=== PATIENT | male | born 1950 | race Caucasian/White ===

== ENCOUNTER 2019-11-03 16:55 | Inpatient (IN) | payer MEDICARE ==
[~2019-11-03] VITALS: Ht 175.3 cm; Wt 94.2 kg
[2019-11-03] MEDS ORDERED: CLIN300 PO ×2 (17:35→21:59)
[2019-11-03] MEDS ORDERED: RIFA550T2 PO (17:35)
[2019-11-03] MEDS ORDERED: DIBU30TO PR (17:37)
[2019-11-03 18:27] LABS: BASOPHILS ABSOLUTE AUTO 0.09 K/mm3 (0.00-0.23); BASOPHILS PERCENT AUTO 1 % (0-2); EOSINOPHILS ABSOLUTE AUTO 0.36 K/mm3 (0.00-0.68); EOSINOPHILS PERCENT AUTO 2 % (0-6); Hemoglobin 13.6 g/dL (13.5-17.5); IMMATURE GRAN ABSOLUTE AUTO 0.19 K/mm3 (0.00-0.10); IMMATURE GRAN PERCENT AUTO 1 % (0-1); LYMPHOCYTES ABSOLUTE AUTO 1.01 K/mm3 (0.84-5.20); LYMPHOCYTES PERCENT AUTO 5 % (21-46); MONOCYTES ABSOLUTE AUTO 1.35 K/mm3 (0.16-1.47); MONOCYTES PERCENT AUTO 7 % (4-13); Mean Corpuscular HGB 29.8 pg (26.0-34.0); Mean Corpuscular HGB Conc 31.6 g/dL (31.5-36.5); Mean Corpuscular Volume 94 fL (80-100); Mean Platelet Volume 9.8 fL (9.1-12.4); NEUTROPHILS ABSOLUTE AUTO 15.91 K/mm3 (1.96-9.15); NEUTROPHILS PERCENT AUTO 84 % (41-73); Platelet Count 211 K/mm3 (150-400); RDW Coefficient Variation 18.8 % (11.7-14.2); RDW Standard Deviation 64.7 fL (35.1-46.3); Red Blood Cell Count 4.56 M/mm3 (4.30-5.90); White Blood Cell Count 18.91 K/mm3 (4.00-11.30)
[2019-11-03 18:41] LABS: International Normalized Ratio 1.33
[2019-11-03 19:01] LABS: Albumin, Blood 2.6 g/dL (3.4-5.0); Albumin/Globulin Ratio 0.5 (0.8-1.8); Bilirubin, Total 5.8 mg/dL (0.1-1.0); Calcium, Blood 8.3 mg/dL (8.5-10.1); Creatinine, Blood 2.56 mg/dL (0.60-1.20); Globulin, Blood 5.2 g/dL (2.2-4.0); Potassium, Blood 4.4 mmol/L (3.5-5.5); Total Protein, Blood 7.8 g/dL (6.4-8.2)
[2019-11-03] MEDS ORDERED: Mupirocin22 GM TOP (22:00)
[2019-11-03] MEDS ORDERED: KETO15TC TOP (22:02)
--- NOTE | 2019-11-03 23:00 | NUR ---
PT ADMITTED TO ROOM ICU 15 UNDER PCU STATUS. ARRIVES AT 2140 TO ROOM FROM EMERGENCY DEPARTMENT. SLIDE TRANSFERRED TO BED. PT PRESENTS WITH VERY EDEMATOUS LOWER EXTREMITIES THAT ARE WEEPING BI LAT. HAVE ELEVATED LOWER EXTREMITIES. PT HAS RECENTLY BEEN IN HOSPITAL IN [place]. PT'S STATES THAT PT HAD TWO SEPARATE PARACENTESIS DONE WHILE IN [place] FOR A TOTAL OF 7.5 LITERS. PT PENDING HAVING A PARACENTESIS DONE IN AM. PT RECEIVING ANTIBIOTIC THERAPY. WILL REVIEW CHART AND PLAN OF CARE FOR THIS PT.
--- NOTE | 2019-11-04 02:00 | NUR ---
PT HAS NO S/S ADVERSE REACTIONS TO ANTIBIOTIC THERAPY TO NOTE. HAS BEEN ABLE TO REST SOME. PT'S ROOMS IN FOR THE NIGHT. WILL CONTINUE TO MONITOR PT.
[2019-11-04 04:02] LABS: Hematocrit 38.6 % (37.0-53.0); Hemoglobin 12.3 g/dL (13.5-17.5); Mean Corpuscular HGB 30.4 pg (26.0-34.0); Mean Corpuscular HGB Conc 31.9 g/dL (31.5-36.5); Mean Corpuscular Volume 95 fL (80-100); Platelet Count 189 K/mm3 (150-400); RDW Coefficient Variation 18.5 % (11.7-14.2); RDW Standard Deviation 64.5 fL (35.1-46.3); Red Blood Cell Count 4.05 M/mm3 (4.30-5.90); White Blood Cell Count 13.13 K/mm3 (4.00-11.30)
[2019-11-04 04:20] LABS: Albumin, Blood 2.5 g/dL (3.4-5.0); Albumin/Globulin Ratio 0.5 (0.8-1.8); Bilirubin, Total 5.7 mg/dL (0.1-1.0); Bun/Creatinine Ratio 24.6 (12.0-20.0); Creatinine, Blood 2.81 mg/dL (0.60-1.20); Globulin, Blood 4.6 g/dL (2.2-4.0); Potassium, Blood 4.6 mmol/L (3.5-5.5); Total Protein, Blood 7.1 g/dL (6.4-8.2)
--- NOTE | 2019-11-04 06:43 | NUR ---
PT CONTINUES WITH WEEPING EDEMA TO LOWER EXTREMITIES. ABDOMEN EXTENDED WITH ASCITES. PENDING PARACENTESIS THIS DAY. HAS BEEN UP TO BEDSIDE COMMODE ONCE THIS MORNING. VOIDS KARIME URINE, SMALL AMOUNT. HAS SOFT SMALL STOOL. PT'S ROOMS IN FOR THE NIGHT. IS VERY PARTICULAR CONCERNING PT'S CARE. WILL CONTINUE TO MONITOR PT, AND WILL REPORT OFF TO ONCOMING NURSE.
--- NOTE | 2019-11-04 07:30 | NUR ---
CARE ASSUMED REPORT RECEIVED, CARE ASSUMED AT 0700 FROM MARY ONTIVEROS. PT ASLEEP, AROUSES EASILY FOR ASSESSMENT. AT BEDSIDE. VITALS STABLE, SEE FLOWSHEET. SEE ASSESSMENT.
--- NOTE | 2019-11-04 09:54 | NUR ---
PROVIDER COMMUNICATION DR. CORONADO TO BEDSIDE FOR ASSESSMENT. CONTINUE WITH CURRENT PLAN OF CARE.
--- NOTE | 2019-11-04 10:30 | NUR ---
PT'S HISTORY PT'S EXPLAINED THAT PT HAD BEEN IN HOSPITAL IN [place] AND LEFT AGAINST MEDICAL ADVICE. SHE HAS LIST OF MEDICATIONS THAT HE WAS ON WHILE IN HOSPITAL, AND EXPRESSED CONCERN THAT THE DOCTOR BE AWARE OF THESE MEDICATIONS SINCE HE WASN'T DISCHARGED WITH PRESCRIPTIONS. SPOKE WITH DR. CORONADO WHO STATES HE WILL REVIEW THEM ON PAPER CHART WE CAN NOT UPDATE INPATIENT IV MEDICATIONS IN MED RECONCILIATION. COPY OF MEDICATION LIST PLACED ON PAPER CHART.
--- NOTE | 2019-11-04 11:05 | NUR ---
PHYSICAL THERAPY COMPLETE - SEE PT NOTES. PT TO ULTRASOUND FOR PARACENTESIS. PT SWITCHED TO TELEMETRY HEART MONITOR. CONFIRMED WITH TERESA CAMACHOU CIRCULAR SAWYER HELPER.
--- NOTE | 2019-11-04 12:21 | NUR ---
PT BACK TO ICU 15 AFTER PARACENTESIS. REPORTS FEELING MUCH BETTER. VITALS STABLE. AT BEDSIDE.
[2019-11-04 13:03] LABS: Automated BF WBC Count 0.239 K/mm3 (0-999); Body Fluid WBC Count 239 /mm3 (0-999)
[2019-11-04 13:12] LABS: RBC Count, Body Fluid 153 /mm3 (0-0)
[2019-11-04 13:32] LABS: Total Cell Count, Body Fluid 100
[2019-11-04 13:33] LABS: Color, Body Fluid Yellow (None-Yellow)
[2019-11-04 13:34] LABS: Appearance, Body Fluid Clear (Clear)
--- NOTE | 2019-11-04 19:00 | NUR ---
SUMMARY SINCE RETURNING TO ROOM, VITALS STABLE. BP SOFT, WITH MAPS MOSTLY BETWEEN 60-65. PT AFEBRILE. HR STABLE IN 70'S-80'S. 02 SAT 90'S ON ROOM AIR. PARACENTESIS SITE CLEAN, DRY AND INTACT. PT HAS HAD MINIMAL URINE OUTPUT THROUGHOUT SHIFT, WHICH PT AND SAY IS NOT HIS BASELINE. 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 UPDATED DR. CORONADO ON DECREASED URINE OUTPUT, CURRENT BLOOD PRESSURE, WIFES CONCERN FOR MRSA AND WISH FOR PROBIOTICS. NEW ORDER FOR MRSA SWAB OF OPEN WOUND ON RIGHT CALF AND TO START PROBIOTICS. OTHERWISE, PT HAS BEEN ALERT AND ORIENTED, CALLING APPROPRIATELY FOR NEEDS. STANDBY ASSIST TO BEDSIDE COMMODE AND TOLERATES WELL. WOUND CARE COMPLETE TO BILATERAL LOWER EXTREMITIES PER PT'S HOME REGIME. PHOTOS TAKEN AND PLACED IN PAPER CHART. PT HAS HAD GOOD APPETITE.
--- NOTE | 2019-11-04 19:31 | NUR ---
REPORT TO MARY JOHNSON TO ASSUME CARE
--- NOTE | 2019-11-04 19:45 | NUR ---
ASSUMED CARE BEDSIDE REPORT TAKEN FROM ALFONSO HERNANDEZ. PT IS RESTING COMFORTABLY IN BED AT THIS TIME W/ SPOUSE AT BEDSIDE. DENIED NEEDS AT THIS TIME. RESP EVEN UNLABORED ON RA W/ SATS >92%. EXAMINED PT WOUNDS ON BLE W/ DAY RN. WEEPING EDEMA NOTED. WILL REPLACE DRESSINGS AND ABSOBENT PADS NEEDED. CALL LIGHT IS WITHIN REACH. PT SPOUSE AT BEDSIDE.
[2019-11-05 03:33] LABS: BASOPHILS ABSOLUTE AUTO 0.07 K/mm3 (0.00-0.23); BASOPHILS PERCENT AUTO 1 % (0-2); EOSINOPHILS PERCENT AUTO 10 % (0-6); Hematocrit 37.1 % (37.0-53.0); Hemoglobin 12.1 g/dL (13.5-17.5); IMMATURE GRAN ABSOLUTE AUTO 0.08 K/mm3 (0.00-0.10); IMMATURE GRAN PERCENT AUTO 1 % (0-1); LYMPHOCYTES PERCENT AUTO 16 % (21-46); MONOCYTES ABSOLUTE AUTO 0.97 K/mm3 (0.16-1.47); MONOCYTES PERCENT AUTO 13 % (4-13); Mean Corpuscular HGB 30.8 pg (26.0-34.0); Mean Corpuscular HGB Conc 32.6 g/dL (31.5-36.5); Mean Corpuscular Volume 94 fL (80-100); Mean Platelet Volume 10.2 fL (9.1-12.4); NEUTROPHILS ABSOLUTE AUTO 4.58 K/mm3 (1.96-9.15); NEUTROPHILS PERCENT AUTO 60 % (41-73); Platelet Count 169 K/mm3 (150-400); RDW Coefficient Variation 18.5 % (11.7-14.2); RDW Standard Deviation 63.1 fL (35.1-46.3); Red Blood Cell Count 3.93 M/mm3 (4.30-5.90)
[2019-11-05 03:56] LABS: Albumin/Globulin Ratio 0.5 (0.8-1.8); Bilirubin, Total 3.7 mg/dL (0.1-1.0); Bun/Creatinine Ratio 20.8 (12.0-20.0); Calcium, Blood 7.8 mg/dL (8.5-10.1); Creatinine, Blood 3.79 mg/dL (0.60-1.20); Globulin, Blood 4.3 g/dL (2.2-4.0); Potassium, Blood 4.7 mmol/L (3.5-5.5); Total Protein, Blood 6.3 g/dL (6.4-8.2)
--- NOTE | 2019-11-05 06:03 | NUR ---
SHIFT SUMMARY PT SLEEPING IN ROOM COMFORTABLY AT THIS TIME. NO ACUTE CHANGES IN STATUS T/O NIGHT. PT SLEPT WELL. DENIED ANY CP OR SOB. RESP EVEN UNLABORED ON RA W/ SATS >92%. PT WAS SIGNIFICANT REDNESS EDEMA TO BLE, NO DRESSINGS TO LEGS, ABSORBENT PADS PLACED ON BED AND OVER LEGS TO ABSORB WEEPING. LEGS MEDICATED W/ HOME REGIMEN CREAM. MEPILEX PLACE ON OUTER L LEG WOUND AND REAR R LEG WOUND. ASCENCION CHICAS SENT TO LAB DURING SHIFT. PT GOT UP TO BSC ONCE DURING NIGHT, WAS SLIGHTLY UNSTEADY ON FEET, REQUIRED STRONG 1 PERS ASSIST AND 4WW. PT HAD VERY SMALL BM, AND VERY SMALL URINE OUTPUT. VSS. PT REPORTS WEEPING ON LEGS GREATLY REDUCED FROM PREVIOUS DAYS. DENIES OTHER NEEDS AT THIS TIME. CALL LIGHT IS WITHIN REACH. PT SPOUSE AT BEDSIDE. WILL GIVE BEDSIDE REPORT TO ONCOMING RN.
--- NOTE | 2019-11-05 08:00 | NUR ---
INITIAL ASSESMENT PT ALERT AND ORIENT AND CALM AND COOPERATIVE, FOLLOWS ALL COMMANDS AND C/O GENERALIZED PAIN. DEMANDING AND VERY DIRECT ON PT CARE AND NEEDS. VSS, AFEBRILE AND RA WITH SATS WNL AND CLEAR AND DIM BILAT. TOLERATING PO INTAKE WITH GOOD APPETITE AND abd ROUND DISTENDED AND FIRM WITH BT T/O. UO MINIMAL, MD ADVISED. BILAT LE VERY EDEMATOUS, RED AND WARM AND DRAINING YELLOW DISCHARGE
--- NOTE | 2019-11-05 13:15 | NUR ---
PT UPDATE PT REFUSING OCTREATIDE QTT AND ALBUMIN INFUSION, EDUCATION AND MEDICATION DETAILS PRINITED AND PROVIDED TO THE PATIENT. FACE TO FACE MEDICATION ED COMPLETE WITH ALL QUESTIONS AND CONCERNS REGARDING MEDS ADDRESSED. PHARMACIST ADVISED AND MD NOTIFIED
[2019-11-05 15:50] LABS: Source, Urine Clean Catch
[2019-11-05 16:07] LABS: Bilirubin, Urine Neg (Neg); Blood, Urine 1+ (Neg); Glucose Qualitative, Urine Neg (Neg); Ketones, Urine 2+ (Neg); Leukocyte Esterase, Urine 1+ (Neg); Nitrite, Urine Neg (Neg); Protein, Urine 2+ (Neg); Specific Gravity, Urine 1.025 (1.003-1.022); Urobilinogen, Urine NORM (Normal)
[2019-11-05 16:12] LABS: Appearance, Urine Hazy (Clear); Color, Urine Amber (P-Yellow)
[2019-11-05 16:14] LABS: Amorphous Light (0-Heavy); Bacteria Mod /hpf; Mucus Light (0-Heavy); Squamous Epithelial Cells Few /hpf (Few); Transitional Epithelial Cells Few /hpf (0-Rare)
--- NOTE | 2019-11-05 18:03 | NUR ---
PT UPDATE PT REQUESTING MAR TO BE PRINTED AND PROVIDED, UNABLE TO COMPLETE REQUEST. CN NOTIFIED, ADVISED TO CALL MED REC, PT CALLED MED REC, THEY ADVISED TO CALL HS. HS ON UNIT WITH FORM AND COLLABORATING WITH TONY AND CN TO MEET WIFES REQUESTS.
--- NOTE | 2019-11-05 20:15 | NUR ---
UPDATE NURSE PRACTIONER RENAY STROUD NOTIFIED THAT PATIENT AND PATIENT'S WOULD LIKE PATIENT TO BE TAKING ROCEPHIN INSTEAD OF CURRENT ANTIBIOTIC. RENAY STATED SHE DID NOT FEEL COMFORTABLE MAKING CHANGES TO PATIENT'S CURRENT ORDERED ANTIBIOTICS. STATED THE DAY SHIFT 'Gwyn WOULD NEED TO DO THAT. PATIENT AND PATIENT'S INFORMED. PATIENT REFUSED TO HAVE ORDERED ANTIBIOTIC TONIGHT.
--- NOTE | 2019-11-05 23:00 | NUR ---
UPDATE A ONE TIME DOSE OF ALBUMIN WAS ORDERED EARLIER IN THE DAY AND PATIENT REFUSED IT AT THAT TIME. HOWEVER, PATIENT IS NOW REQUESTING IT. NURSE PRACTIONER RENAY NOTIFIED AND IT WAS REORDERED. AFTER OBTAINING MEDICATION PATIENT CHANGED HIS MIND AND REFUSED THIS ALBUMIN WELL.
--- NOTE | 2019-11-06 05:38 | NUR ---
UPDATE DR SANCHEZ ORDERED A RENAL PANEL THIS AM PER PATIENT AND PATIENT'S REQUEST.
[2019-11-06 06:20] LABS: Anion Gap 11 mmol/L (6-16); Blood Urea Nitrogen 87 mg/dL (8-24); Bun/Creatinine Ratio 17.8 (12.0-20.0); CO2, Blood 17 mmol/L (21-32); Calcium, Blood 7.8 mg/dL (8.5-10.1); Chloride, Blood 100 mmol/L (98-108); Creatinine, Blood 4.89 mg/dL (0.60-1.20); Glomerular Filtration Rate 13 (60-); Glucose, Blood 112 mg/dL (70-99); Potassium, Blood 4.7 mmol/L (3.5-5.5); Sodium, Blood 128 mmol/L (136-145)
--- NOTE | 2019-11-06 07:21 | NUR ---
SHIFT SUMMARY PATIENT PLEASENT AND COOPERATIVE THROUGHOUT THE NIGHT LAST NIGHT. LOTS OF EDUCATION PROVIDED RELATED TO ANTIBIOTICS AND MEDICATIONS. INFO PRINTED AND PROVIDED TO PATIENT AND PATIENT'S . RISKS OF REFUSING ANTIBIOTIC PROVIDED TO PATIENT AND PATIENT STILL CHOOSE TO REFUSE. DAY SHIFT RN AWARE OF SODIUM LEVEL THIS AM AND WILL ENSURE THE DR IS AWARE WELL. BEDSIDE REPORT DONE WITH ONCOMING RN.
--- NOTE | 2019-11-06 08:30 | NUR ---
ASSUMED CARE OF PT AT 0715. A&O X 3, AT BEDSIDE. REFUSED HEPARIN SQ, CITING EPISTAXIS AND GI BLEEDING, AND REFUSED ABX; WANTS MEDICATION THAT INFECTIOUS DX DOCTOR IN [place] PRESCRIBED (ROCEPHIN). HAS NEW BED ASSIGNMENT ON MEDICAL FLOOR.
--- NOTE | 2019-11-06 09:45 | NUR ---
PT TRANSFERRED TO MEDICAL FLOOR ROOM 312 VIA HIS BED (D/T NUMEROUS POSSESIONS) BY Lia SHEETS, HAS ALL POSSESIONS AND OWN MEDICATIONS.
--- NOTE | 2019-11-06 18:37 | NUR ---
SHIFT SUMMARY PATIENT IS PLEASANT, ALERT AND ORIENTED. TASKES PATIENT TO THE BATHROOM AT THIS TIME AND WILL ASSESS FOR CHANGES. DR. SALAZAR WAS CONSULTED FOR HIS HEPATORENAL SYNDROME AND HIS KIDNEY FUNCTION. PATIENT'S FAMILY MEMBERS ARE VERY BIG ADVOCATES FOR THE PATIENT. SHE DOES GET A LITTLE BIT PUSHY BUT HAS BEEN PLEASANT WITH ME. SPOKE WITH THE PATIENT AND THE PATIENT ADVOCATE ABOUT CONCERNS THAT THE PATIENT AND FAMILY FELT NEEDED TO BE ADRESSED. SHE STATES THAT THERE WAS A COMMENT MADE ABOUT THE ANTIBIOTICS, AND THE PATIENT NOTES THAT SHE DOES NOT WANT TO IGNORE THE CONTINUITY OF CARE. PATIENT HAS BEEN WITH JOY YESTERDAY AND TODAY. HE WAS SWITCHED TO THE MEDICATION THAT THE PATIENT'S FAMILY MEMBER REQUESTED THIS WAS A MEDICATION THAT THE PATIENT WAS PLACED ON BY THE INFECTIOUS DISEASE DOCTOR FROM [place]. THE PATIENT WAS GIVEN AN INFECTIOUS DISEASE CONSULT TO BE CALLED ON SATURDAY. THE PATIENT IS PLEASANT AND REPLIES SLOWLY. PATIENT'S FAMILY MEMBER HAS BEEN VERY VOCAL FOR THE PATIENT. NO ACUTE CONCERNS AT THIS TIME. ROBERTO STATES SHE WILL FOLLOW UP. PATIENT IS CURRENTLY SEEING DR. SALAZAR FOR DR. STOVALL HE IS COVERING HIS PATIENTS AND HIS NEW CONSULTS. PATIENT IS NOT A DIALYSIS PATIENT.
--- NOTE | 2019-11-06 19:53 | NUR ---
1914 REPORT RECEIVED FROM LORETTA HERNANDEZ; PT RESTING COMFORTABLY IN BED WITH AT SIDE WHOM VERY SUPPORTIVE; DENIES NEED FOR PAIN MEDS.
--- NOTE | 2019-11-07 04:46 | NUR ---
SHIFT SUMMARY: 69 Y/O OBESE MALE RESTED COMFORTABLY ALL SHIFT; PTS BILATERAL LOWER LEGS ARE RED AND WARM TO TOUCH; PTS AT SIDE AND VERY SUPPORTIVE; ALERT AND ORIENTED X 4; C/O BILATERAL LOWER LEG PAIN RATED 7/10 WITH NORCO 5/325MG PO GIVEN WITH RELIEF FELT; ABLE TO TRANSFER AND AMBULATE TO BATHROOM AND BACK X 1 STANDBY ASSIST; DENIES NAUSEA; BED LOW POSITION WITH CALL LIGHT AT SIDE.
[2019-11-07 05:40] LABS: Source, Urine Clean Catch
[2019-11-07 06:01] LABS: BASOPHILS ABSOLUTE AUTO 0.06 K/mm3 (0.00-0.23); BASOPHILS PERCENT AUTO 1 % (0-2); EOSINOPHILS ABSOLUTE AUTO 0.82 K/mm3 (0.00-0.68); EOSINOPHILS PERCENT AUTO 15 % (0-6); Hematocrit 38.6 % (37.0-53.0); Hemoglobin 12.3 g/dL (13.5-17.5); IMMATURE GRAN PERCENT AUTO 2 % (0-1); LYMPHOCYTES ABSOLUTE AUTO 0.97 K/mm3 (0.84-5.20); LYMPHOCYTES PERCENT AUTO 17 % (21-46); MONOCYTES PERCENT AUTO 16 % (4-13); Mean Corpuscular HGB 30.3 pg (26.0-34.0); Mean Corpuscular HGB Conc 31.9 g/dL (31.5-36.5); Mean Corpuscular Volume 95 fL (80-100); Mean Platelet Volume 10.5 fL (9.1-12.4); NEUTROPHILS ABSOLUTE AUTO 2.78 K/mm3 (1.96-9.15); NEUTROPHILS PERCENT AUTO 49 % (41-73); Platelet Count 192 K/mm3 (150-400); RDW Coefficient Variation 18.3 % (11.7-14.2); RDW Standard Deviation 62.3 fL (35.1-46.3); Red Blood Cell Count 4.06 M/mm3 (4.30-5.90); White Blood Cell Count 5.63 K/mm3 (4.00-11.30)
[2019-11-07 06:11] LABS: Bilirubin, Urine Neg (Neg); Blood, Urine 1+ (Neg); Glucose Qualitative, Urine Neg (Neg); Ketones, Urine 1+ (Neg); Leukocyte Esterase, Urine 1+ (Neg); Nitrite, Urine Neg (Neg); Protein, Urine 2+ (Neg); Specific Gravity, Urine 1.025 (1.003-1.022); Urobilinogen, Urine NORM (Normal)
[2019-11-07 06:21] LABS: Albumin, Blood 2.4 g/dL (3.4-5.0); Anion Gap 13 mmol/L (6-16); Blood Urea Nitrogen 97 mg/dL (8-24); Bun/Creatinine Ratio 16.1 (12.0-20.0); CO2, Blood 16 mmol/L (21-32); Chloride, Blood 98 mmol/L (98-108); Creatinine, Blood 6.04 mg/dL (0.60-1.20); Glomerular Filtration Rate 10 (60-); Glucose, Blood 99 mg/dL (70-99); Magnesium, Blood 2.7 mg/dL (1.6-2.4); Phosphorus, Blood 7.1 mg/dL (2.5-4.9); Potassium, Blood 4.6 mmol/L (3.5-5.5); Sodium, Blood 127 mmol/L (136-145)
[2019-11-07 06:46] LABS: Appearance, Urine Hazy (Clear); Color, Urine Amber (P-Yellow)
[2019-11-07 06:47] LABS: Amorphous Mod (0-Heavy); Bacteria Few /hpf; Granular Casts 25-50 /lpf (0); Red Blood Cells, Urine 0-2 /hpf (0-2); Squamous Epithelial Cells Rare /hpf (Few); Transitional Epithelial Cells Few /hpf (0-Rare)
--- NOTE | 2019-11-07 18:29 | NUR ---
SHIFT SUMMARY PATIENT HAS HAS A LONG DAY. HE STATES THAT HE IS REALLY NOT FEELING WELL. HE IS GETTING SLOWER AND AT THIS TIME HE HAS BEEN EVALUATED BY DR. HAMPTON, DR. SALAZAR, AND JOY. PATIENT IS PLEASANT WHEN YOU SPEAK WITH HIM BUT HAS SOME MILD ENCEPHALOPATHY. HE IS ON XIAFIN OR RIFAMPIMIN. DR. HAMPTON DOES NOT WANT TO DO A PARACENTESIS DUE TO THE FACT THAT HE COULD MOST LIKELY DAMAGE THE PATIENT'S KIDNEYS EVEN FURTHER. HE SPOKE WITH THE FAMILY ABOUT POSSIBLE TRANSFER TO [facility], APPARENTLY THIS IS MOST LIKELY NOT AN OPTION ANYMORE. HE IS LOOKING THROUGH SOME MORE LAB TESTS TO UNDERSTAND WHAT IS GOING ON WITH THE PATIENT AND WHY HE IS DECLINING SO FAST. CURRENTLY THE PATIENT IS GOING TO GET AN AFP IN THE MORNING LAB DRAW, AND AN ULTRASOUND OF HIS LIVER TO UNDERSTAND IF THERE IS MORE GOING ON THAT THE FAMILY IS NOT TOLD ABOUT. CURRENTLY THE PATIENT IS PLEASANT, BUT SLOWLY DECLINING MENTALLY. HE CANNOT BE ON LACTULOSE DUE TO HIS LOOSER STOOLS THEY WOULD BE MADE MORE LOOSE. THE PATIENT DOES HAVE ASTERIXIS.
--- NOTE | 2019-11-07 23:07 | NUR ---
CALL TO HOSPITALIST PT BLADDER SCANNED PER ORDERS QSHIFT. BLADDER SCAN SHOWED 479ML IN BLADDER, PT ALSO HAS ACITIES. CALL PLACED, ORDERED STRAIGHT CATHETERISATION. PT REFUSED, ATTEMPTED TO USE THE RESTROOM, VOIDED 50ML. PT REFUSED AGAIN AFTER 1 HOUR. PT AND STATED THAT A NURSE OR OPTICAL LATHE OPERATOR CANT READ BLADDER SCANS AND A MESS ATTENDANT CREW OR RADIOLOGIST SHOULD SCAN THE PT BECUASE HE IS TOO FRAGILE TO STRAIGHT CATH DUE TO HIS SWOLLEN FORESKIN. PT AND POUSE EDUCATED ABOUT WHAT REFUSAL WILL INCLUDE, PT STATED THAT HE DOESNT REFUSE BUT INSTEAD JUST NEEDS MORE FACTS. HOSPITALIST NOTIFIED OF REFUSAL, STATED TO CHART HIS REFUSAL. STATED THAT IF THE PTS SWELLING WENT DOWN THEN SHE WOULD THINK ABOUT A STRIGHT CATH AND THE POUSE WANTED TO TALK TO HOSPITALIST ABOUT PLANS FOR HIS KIDNEYS IN THE AM.
--- NOTE | 2019-11-07 23:30 | NUR ---
BEGINNING SHIFT SUMMARY ASSUMED CARE OF PT AT 1900. PT IS A.O X4, STATES HE HAS NUMBNESS IN HIS LEGS. PT IN ROOM AND IS VERY INVOLVED WITH CARE. HEART SOUNDS REGULAR, LUNG SOUNDS HAVE FINE CRACKLES AT THE BASES, PT STATES SOB WITH ACTIVITY AND BECAUSE HIS ABD IS PUSHING UP INTO HIS LUNGS. ABDOMEN FIRM AND TENDER, SEVERLY DISTENDED, AND HYPERATIVE BOWEL SOUNDS. PT BLADDER SCANNED, SEE PREVIOUS NOTE. PT PEED 50ML SP FAR THIS SHIFT, URINE DARK KARIME COLOR. PT LEGS ARE WEEPING, RED, AND EDEMADOUS, DOES WOUND CARE. PT IS CURRENTLY SLEEPING. CALL LIGHT IN REACH, BED IN LOWEST POSTION, WILL CONTINUE TO MONITOR.
--- NOTE | 2019-11-08 04:52 | NUR ---
END SHIFT SUMMARY PT C/O PAIN DURING THE NIGHT, MEDICATED PER EMAR. PT ONLY PEED 75ML DURING THE WHOLE SHIFT, URINE IS DARK KARIME COLORED. PT STATED THAT PT HAD TWO BOWEL MOVEMENTS, STOOL WAS GREEN AND LOOSE. CALL LIGHT IN REACH, BED IN LOWEST POSTION, WILL CONTINUE TO MONITOR UNTIL DAYSHIFT NURSE ARRIVES.
[2019-11-08 05:57] LABS: Albumin, Blood 2.4 g/dL (3.4-5.0); Albumin/Globulin Ratio 0.5 (0.8-1.8); Bilirubin, Total 3.5 mg/dL (0.1-1.0); Bun/Creatinine Ratio 13.8 (12.0-20.0); Calcium, Blood 7.7 mg/dL (8.5-10.1); Creatinine, Blood 6.82 mg/dL (0.60-1.20); Globulin, Blood 4.5 g/dL (2.2-4.0); Phosphorus, Blood 7.9 mg/dL (2.5-4.9); Potassium, Blood 5.6 mmol/L (3.5-5.5); Total Protein, Blood 6.9 g/dL (6.4-8.2)
[2019-11-08 06:02] LABS: BASOPHILS ABSOLUTE AUTO 0.06 K/mm3 (0.00-0.23); BASOPHILS PERCENT AUTO 1 % (0-2); EOSINOPHILS ABSOLUTE AUTO 0.66 K/mm3 (0.00-0.68); EOSINOPHILS PERCENT AUTO 12 % (0-6); Hematocrit 36.9 % (37.0-53.0); Hemoglobin 12.2 g/dL (13.5-17.5); IMMATURE GRAN ABSOLUTE AUTO 0.09 K/mm3 (0.00-0.10); IMMATURE GRAN PERCENT AUTO 2 % (0-1); LYMPHOCYTES ABSOLUTE AUTO 0.81 K/mm3 (0.84-5.20); LYMPHOCYTES PERCENT AUTO 15 % (21-46); MONOCYTES ABSOLUTE AUTO 0.89 K/mm3 (0.16-1.47); MONOCYTES PERCENT AUTO 16 % (4-13); Mean Corpuscular HGB 30.7 pg (26.0-34.0); Mean Corpuscular HGB Conc 33.1 g/dL (31.5-36.5); Mean Corpuscular Volume 93 fL (80-100); Mean Platelet Volume 10.3 fL (9.1-12.4); NEUTROPHILS PERCENT AUTO 54 % (41-73); Platelet Count 186 K/mm3 (150-400); RDW Coefficient Variation 17.9 % (11.7-14.2); RDW Standard Deviation 59.5 fL (35.1-46.3); Red Blood Cell Count 3.98 M/mm3 (4.30-5.90); White Blood Cell Count 5.51 K/mm3 (4.00-11.30)
[2019-11-08 06:17] LABS: International Normalized Ratio 1.59; Prothrombin Time Results 16.6 Sec (9.7-11.5)
--- NOTE | 2019-11-08 08:45 | NUR ---
PT CAME TO THIS NURSE TO REPORT THAT HER IS VERY TIRED FROM NOT SLEEPING LAST NIGHT. SHE STATED THAT THEY WERE NOT GOING TO DO THE BLADDER SCAN NOW OR TAKE ANY MEDICATIONS UNTIL HE GOT SOME REST. THIS NURSE EXPLAINED THAT THESE TX WERE ORDERED BY THE DOCTOR AND THE IMPORTANCE OF THEM. SHE STATED THAT IT COULD ALL WAIT UNTIL LATER. THIS NURSE NOTIFIED CHARGE NURSE AND DOCTOR OF REFUSALS AND WILL ATTEMPT AGAIN LATER THIS MORNING.
[2019-11-08 12:31] LABS: Bun/Creatinine Ratio 14.3 (12.0-20.0); Calcium, Blood 7.9 mg/dL (8.5-10.1); Creatinine, Blood 6.9 mg/dL (0.60-1.20); Potassium, Blood 5.1 mmol/L (3.5-5.5)
--- NOTE | 2019-11-08 13:48 | NUR ---
DR GATES CONSULT DR GATES NOTIFIED OF CONSULT AT THIS TIME. PT ON THE WAY FROM MEDICAL FLOOR.
--- NOTE | 2019-11-08 13:49 | NUR ---
REPORT REPORT RECEIVED FROM MARY MCKAY ON MEDICAL FLOOR. PT TO TRANSFER TO ICU 14.
--- NOTE | 2019-11-08 15:05 | NUR ---
TRANSFER NOTE PT ARRIVED TO ICU 14 FROM MEDICAL FLOOR AT 1450. PT ALERT AND ORIENTED, PLEASANT AND COOPERATIVE WITH CARE. PT IN WAITING AREA. PT TRANSFERRED TO ICU BED AND REPOSITIONED FOR COMFORT. BLE ELEVATED ON PILLOWS. PT CONNECTED TO WAITER/WAITRESS TOURIST CLASS, SHOWING NSR. VSS, SEE FLOWSHEET. PT REPORTS PAIN "ALL OVER" A 6/10, STATES "IT'S MORE LIKE A NUMBNESS". LS CLEAR T/O, DIMINISHED IN BASES. BREATHING E/U ON RA. PT REPORTS SOB WITH TALKING. PT DENIES ANY CHEST PAIN/PRESSURE. ABD MODERATELY DISTENDED, FIRM AND TENDER TO PALPATION. BT X4, HYPOACTIVE. PT DENIES ANY NAUSEA. +4 PITTING EDEMA TO BLE ROM FEET TO UPPER THIGH. EDEMA EXTENDS TO SCROTUM AND ABD. +3 PITTING EDEMA TO ABD. BLE WEEPING, CHUCKS PADS UNDER LEGS. LEFT LEG WRAPPED IN GAUZE, PER REPORT PT'S REFUSES ANY STAFF TO CHANGE DRESSING. PEDAL PULSES STRONG, RADIAL PULSES STRONG. 20G PIV TO LEFT WRIST, FLUSHES EASILY. SODIUM BICARB RUNNING AT 75ML/HR PER ORDERS. PT ROBERTSON, REQUIRES ASSISTANCE WITH REPOSITIONING. CALL LIGHT IN REACH. BED IN LOWEST POSITION, SIDE RAILS RAISED. BED ALARM ON. WILL CONT TO MONITOR PT.
--- NOTE | 2019-11-08 15:47 | NUR ---
PALLIATIVE CARE PALLIATIVE CARE RN, LUCIANA, AT BEDSIDE SPEAKING WITH AND PT.
--- NOTE | 2019-11-08 16:00 | NUR ---
UPDATE ON HEMODIALYSIS DR GATES SPOKE WITH PT, PT'S PRESENT, REGARDING PLACEMENT OF HEMODIALYSIS CATHETER. PT AND REPORT NOT BEING INFORMED OF THE CONSULT FOR POSSIBLE DIALYSIS. DR GATES CALLED DR SALAZAR TO COME AND DISCUSS THIS WITH THE PT AND HIS . DR SALAZAR TO BEDSIDE TO DISCUSS THE ROLE OF HEMODIALYSIS IN PT'S CARE WELL RISKS AND BENEFITS. PT'S PREOCCUPIED WITH THE PLACEMENT SITE OF THE HEMODIALYSIS CATHETER, REQUESTING IT TO BE IN THE GROIN. DR SALAZAR EXPLAINED THAT DR GATES WOULD BE THE ONE TO COVER THE PLACEMENT OPTIONS. PT AND AGREE TO DIALYSIS, BUT WANT TO DISCUSS THE POSSIBLE PLACEMENT SITES OF THE HEMODIALYSIS CATHETER. DR SALAZAR UPDATED DR GATES. DR GATES TO BEDSIDE TO OBTAIN CONSENT AFTER THOROUGHLY EXPLAINING THE PROCEDURE, RISKS, AND BENEFITS OF BOTH GROIN AND IJ PLACEMENT. PT'S CONTINUED TO EXPRESS CONCERN ABOUT PT'S ABILITY TO "BE AWAKE" FOR THE PROCEDURE "WHEN HE HASN'T GOTTEN ANY SLEEP". DR GATES REASSURED THAT THIS PROCEDURE IS DONE OFTEN ON SEDATED PT'S THEREFORE THERE IS NO NEED FOR PT TO BE AWAKE. PT AND HIS WFE ASKING TO "TALK ABOUT IT FOR A BIT". AWAITING PT AND HIS 'S DECISION AT THIS TIME.
--- NOTE | 2019-11-08 16:21 | NUR ---
Pt resting in bed upon arival. He reports manageable discomfort in his abdomen due to pressure. Listened as Pt's reports plan to move to [facility] closer to family, then will meet with specialists in [place]. Discussed prognosis given from current hospitalist, Dr Conn, specialists from [facility] and hospital from [place]. Pt's reports unwillingness to accept prognosis an states she does not respect or trust [facility]. She states specialist will still perform transplant in Pt's current condition in [place]. She also states she does not accept Pt having liver cancer due to no imaging or biopsy that confirms liver cancer. At this point in the visit Dr Quigley enters to discuss placing perma cath for dialysis. Dr Quigley educates on risk factors and the importance of understanding that dialysis will help the kidney's but will not help the liver which is the cause of the kidney failure. Pt and report they would like time to discuss before making a decision. This RN ended visit as well to allow for Pt and to discuss among themselves. Spoke with bedside RN Adore and discussed case. Palliative Care will remain available.
--- NOTE | 2019-11-08 17:58 | NUR ---
HEMODIALYSIS DECISION CONT PT AND TOLD DR GATES THEY WOULD LIKE 2 HOURS FOR PT TO REST BEFORE MAKING A DECISION. THIS WAS DETERMINED AT 1700. PT RESTING WITH LIGHTS OFF IN RM, WARM BLANKET PROVIDED, AND REPOSITIONED TO COMFORT. PLAN TO CHECK BACK WITH PT ON DECISION AT 1900.
--- NOTE | 2019-11-08 18:26 | NUR ---
SHIFT SUMMARY PT RESTING IN BED, LIGHTS OFF IN RM, GLASS DOOR CLOSED, TV ON WITH [employer] PLAYING. CALL LIGHT IN REACH AND AT BEDSIDE. RHYTHM SHOWING NS ON MONITOR. VSS, SEE FLOWSHEET. NO ACUTE CHANGES. AWAITING PT AND HIS 'S DECISION ON WHETHER TO HAVE HEMODIALYSIS CATHETER PLACED TONIGHT. PLAN TO CHECK IN AT 1900. PT'S VERY NEEDY AND PUSHY WITH STAFF. PT DEFERS DECISIONS AND THINKING TO HIS WHOM HE PUTS ON A PEDESTAL. PT REPORTED THAT HIS "HAS SAVED 4 OF MY FAMILY MEMBERS AND HAS EVEN SAVED ME". 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 BED IN LOWEST POSITION, BED ALARM ON. WILL CONT TO MONITOR PT.
--- NOTE | 2019-11-08 19:43 | NUR ---
HEMODIALYSIS DECISION DR GATES TO BEDSIDE TO DISCUSS PROCEDURE, ALTERNATIVES, RISKS AND BENEFITS OF HEMODIALYSIS CATHETER PLACEMENT. PT CONTINUES TO VERBALIZE INABILITY TO DECIDE. WITH REQUEST TO WAIT UNTIL CREATININE AND GFR RESULTS RETURN TO DECIDE. COATING MACHINE OPERATOR OUTSIDE ROOM WAITING TO DRAW. INFORMED THAT THIS WOULD BE AN ADDITIONAL HOUR FOR RESULTS TO CROSSOVER. PT AND PT'S VERBALIZED DESIRE TO WAIT THIS HOUR BEFORE MAKING A DECISION. DR GATES STATED THAT PLAN WILL BE FOR NOC RN TO CALL DR SALAZAR WITH LAB RESULTS AND IF HE DETERMINES EMERGENCY DIALYSIS IS NECESSARY DR GATES WILL BE CALLED, OTHERWISE PLAN FOR PT TO HAVE PORT PLACED TOMORROW. COATING MACHINE OPERATOR TO FOR BLOOD DRAW, ORDERED BY DR SALAZAR.
--- NOTE | 2019-11-08 20:00 | NUR ---
PATIENT RESTING IN BED, ASSISTING WITH REPOSITIONING IN BED FOR COMFORT. ABD FIRM AND DISTENDED, TYMPANIC BOWEL TONES. ATTEMPT TO HAVE BM ON BED SHEN WITH NO RESULTS. USING URINAL WITH SMALL AMT OF KARIME URINE. DOCTOR KODY WAS IN TO TALK TO PATIENT AND HIS REGARDING PLACING DIALYSIS CATH. PATIENT REMAINS LETHARGIC, BUT APPEARS TO UNDERSTAND REASON FOR NEEDING DIALYSIS AND RISK FOR LINE PLACEMENT. BOTH APEAR TO WANT TO WAIT FOR PERMA-CATH TOMORROW WILL SEE WHAT REPEAT LABS ARE.
[2019-11-08 21:04] LABS: Bun/Creatinine Ratio 13.8 (12.0-20.0); Calcium, Blood 7.9 mg/dL (8.5-10.1); Creatinine, Blood 7.24 mg/dL (0.60-1.20); Potassium, Blood 5.3 mmol/L (3.5-5.5)
--- NOTE | 2019-11-08 22:00 | NUR ---
PATIENT ELBA HS PO MEDS WITHOUT DIFFICULTY. PATIENT VERBALIZED THAT HE FEELS BOTH HUNGRY AND FULL, EXPLAINED THIS MAY BE DUE TO HIS ABD SWELLING. PATIENT HAD BITES OF APPLE SAUCE WITH MEDS. BOTH LEGS REDRESSED AFTER CREAM PLACED TO LEGS AND LUCILA AREA. PATIENTS ASSISTED WITH DRESSING CHANGES. FENTANYL IV GIVEN FOR ABD, LEG AND BACK PAIN AND PATIENT ASSISTED TO LAY ON HIS LEFT SIDE, WITH GOOD PAIN RELIEF. PATIENTS VERBALIZED CONCERN REGARDING FENTANYL CAUSING ITCHING DUE TO HX OF SYNTHETIC NARCOTICS CAUSING ITCHING IN THE PAST.
--- NOTE | 2019-11-08 22:20 | NUR ---
DOCTOR MARIE NOTIFIED OF LAB'S, AND PATIENT'S CONCERN REGARDING DIALYSIS CATH PLACEMENT TONIGHT. PLAN TO WAIT FOR PERMA-CATH PLACEMENT TOMORROW. KAYEXALATE ORDER OBTAINED.
--- NOTE | 2019-11-08 23:02 | NUR ---
PATIENT VERBALIZED FEELING RESTLESS AND ITCHY, PATIENT AND FAMILY VERBALIZED THAT THEY FEEL IT IS FROM THE FENTANYL GIVEN FOR PAIN. PATIENTS VERBALIZED THAT HE HAS HAD MORPHINE IN THE PAST WITH NO ITCHING.
--- NOTE | 2019-11-08 23:24 | NUR ---
DOCTOR CLIFF NOTIFIED OF PATIENT C/O ITCHING AFTER FENTANYL AND WHAT WAS WRITTEN IN DOCTOR HAMILTON NOTES REGARDING DC'ING THE NORCO AND GIVING FENTANYL. ORDER OBTAINED FOR MORPHINE IV.
[2019-11-09 03:29] LABS: BASOPHILS ABSOLUTE AUTO 0.07 K/mm3 (0.00-0.23); BASOPHILS PERCENT AUTO 1 % (0-2); EOSINOPHILS ABSOLUTE AUTO 0.57 K/mm3 (0.00-0.68); EOSINOPHILS PERCENT AUTO 10 % (0-6); Hematocrit 37.1 % (37.0-53.0); Hemoglobin 12.4 g/dL (13.5-17.5); IMMATURE GRAN ABSOLUTE AUTO 0.09 K/mm3 (0.00-0.10); IMMATURE GRAN PERCENT AUTO 2 % (0-1); LYMPHOCYTES ABSOLUTE AUTO 1.08 K/mm3 (0.84-5.20); LYMPHOCYTES PERCENT AUTO 18 % (21-46); MONOCYTES ABSOLUTE AUTO 0.97 K/mm3 (0.16-1.47); MONOCYTES PERCENT AUTO 17 % (4-13); Mean Corpuscular HGB 30.7 pg (26.0-34.0); Mean Corpuscular HGB Conc 33.4 g/dL (31.5-36.5); Mean Corpuscular Volume 92 fL (80-100); Mean Platelet Volume 10.7 fL (9.1-12.4); NEUTROPHILS ABSOLUTE AUTO 3.08 K/mm3 (1.96-9.15); NEUTROPHILS PERCENT AUTO 53 % (41-73); NRBC ABSOLUTE 0.02 K/mm3 (0.00-0.02); NRBC Auto 0.3 /100 WBC (0.0-0.2); Platelet Count 188 K/mm3 (150-400); Red Blood Cell Count 4.04 M/mm3 (4.30-5.90); White Blood Cell Count 5.86 K/mm3 (4.00-11.30)
[2019-11-09 03:54] LABS: Albumin, Blood 2.3 g/dL (3.4-5.0); Anion Gap 13 mmol/L (6-16); Blood Urea Nitrogen 104 mg/dL (8-24); Bun/Creatinine Ratio 13.9 (12.0-20.0); CO2, Blood 17 mmol/L (21-32); Calcium, Blood 7.8 mg/dL (8.5-10.1); Chloride, Blood 94 mmol/L (98-108); Creatinine, Blood 7.49 mg/dL (0.60-1.20); Glomerular Filtration Rate 8 (60-); Glucose, Blood 107 mg/dL (70-99); Magnesium, Blood 2.7 mg/dL (1.6-2.4); Potassium, Blood 5.4 mmol/L (3.5-5.5); Sodium, Blood 124 mmol/L (136-145)
[2019-11-09 04:33] LABS: Phosphorus, Blood 8.5 mg/dL (2.5-4.9)
[2019-11-09 06:07] LABS: HBSAG SCREEN Negative (Negative); HEP A AB, IGM Negative (Negative); HEP B CORE AB, IGM Negative (Negative); HEP C VIRUS AB >11.0 (0.0-0.9)
--- NOTE | 2019-11-09 07:07 | NUR ---
SUMMARY PATIENT SLEEPING OFF AND ON T/O NIGHT. SPEECH REMAINS GARBLED AT TIMES, BUT ANSWERING ALL QUESTIONS APPROPRIATELY. WHEN AWAKE RESTLESS AND MOVING HIS LEGS, SEVERAL ATTEMPTS TO HAVE BM ON LARGE BEDPAN WITH ONLY ONE SMALL BM. VOIDING SMALL AMT OF DARK KARIME URINE EACH TIME. DID NOT DO BLADDER SCAN DUE TO ASCITES. ABD REMAINS LARGE AND FERM WITH TYMPANIC BOWEL TONES. DRESSINGS ON BOTH LEGS RECOVERED WITH KERLIX, PLAN TO HAVE FULL CLEANING AND DRESSING CHANGE WHEN CREAM IS DUE TO BE PUT ON SKIN. PATIENTS AT BEDSIDE PROVIDING GOOD SUPPORT
--- NOTE | 2019-11-09 07:30 | NUR ---
ASSUMED CARE OF PT AT 0700. REPORT FROM TERESE HERNANDEZ. PT RESTING IN BED. SO AT BEDSIDE. DR ANG IN ROOM. LONG DISCUSSION REGARDING PROGRESSION OF LIVER CA AND INABILITY TO TREAT REGARDLESS OF KIDNEY FUNCTION. SO REPORTS SHE WANTS PT STABILIZED, HAS [facility] [place] MIDDLE OF NOV. COMFORT CARE DISCUSSED. SO DECLINED. PT ANSWERS QUESTIONS APPROPRIATELY, APPEARS DROWSY BUT WAKES c STIMULATED. FOLLOWS SIMPLE COMMANDS. C/O ABD PAIN AND GENERALIZED PAIN. LUNGS CLEAR. ABD FIRM, DISTENDED, TENDER. 3+ EDEMA, WEEPING TO BLE. DRESSINGS IN PLACE, C/D/I. VSS. PLAN TO PLACE PERMACATH TODAY FOR DIALYSIS. WILL CONTINUE TO MONITOR.
[2019-11-09 08:38] LABS: International Normalized Ratio 1.6; Prothrombin Time Results 16.7 Sec (9.7-11.5)
--- NOTE | 2019-11-09 11:39 | NUR ---
CONVERSATION WITH PT'S CALLED TO ROOM VIA PT'S CALLING DESK. PER , JOSR WHO "RUNS THE [facility]NTIRE HOSPITAL PROMISED THAT DR. HAMILTON WOULD NOT BE INVOLVED" WITH THE CARE OF HER . WHEN ASKED, PT'S STATES DR. HAMILTON IS "INTERFERING WITH CARE." CALL PLACED TO HOSPITALIST OFFICE AND UPDATED ON PT'S CONCERNS AND TOLD THAT A NEW HOSPITALIST WOULD BE ASSIGNED TOMORROW. UPDATED PT'S WHO CONTINUES TO STATE THAT SHE DOES NOT WANT DR. HAMILTON INVOLVED WITH HER HUSBANDS CARE." PT'S PRIMARY RN AWARE.
--- NOTE | 2019-11-09 13:53 | NUR ---
11/09/19 1353 Eryn Reddy STOCKINGS NOT USED PER MD. COMPROMISED SKIN ON LEGS
--- NOTE | 2019-11-09 15:23 | NUR ---
PT BACK TO ROOM FROM DAY SURGERY AT 1500. PT WAKES c VERBAL STIMULI. SLURRED SPEECH. FOLLOWS SIMPLE DIRECTIONS. APPEARS TO RETURN TO SLEEP WHEN UNDISTURBED. PERMACATH TO LEFT CHEST WALL. DRESSING IN PLACE. SLIGHT OOZING BRIGHT RED BLOOD UNDER DRESSING. VSS. AWAITING DIALYSIS. WILL CONTINUE TO MONITOR.
--- NOTE | 2019-11-09 17:42 | NUR ---
SHIFT SUMMARY PT DROWSY BUT WAKES TO ANSWER SIMPLE QUESTIONS AND FOLLOWS SIMPLE COMMANDS. REPORTS ABD PAIN IMPROVED. RECEIVED ONE DOSE OF MORPHINE THIS SHIFT. ORDER CHANGED TO FENTANYL PRN. ABD FIRM, DISTENDED. NO BM THIS SHIFT. NO URINARY OUTPUT. ORDER FOR 24 HOUR URINE STARTED AT 1500. PT HAD PERMACATH PLACED TO LEFT CHEST WALL TODAY. DIALYSIS RUNNING AT THIS TIME. SMALL AMOUNT OF BLEEDING FROM INSERTION SITE. MICHAELA STATES SHE WILL CHANGE DRESSING TOMORROW TO AVOID REBLEED. ROCEPHIN HELD UNTIL AFTER DIALYSIS. SO VERY INVOLVED IN CARE. REQUESTS TO BE INVOLVED IN DRESSING CHANGES AND ASSESSMENT. UPDATED FREQUENTLY. IVF D/C'D PER DR STOVALL. POWER GLIDE PLACED TO LUE THIS SHIFT. REPORT TO ONCOMING NURSE.
--- NOTE | 2019-11-09 20:00 | NUR ---
PATIENT RESTING QUIETLY, LETHARGIC, AWAKENS TO SLIGHT STIMULI, SPEECH GARBLED AT TIMES. ABLE TO ANSWER ALL QUESTIONS APPROPRIATELY YET FORGETFUL AND PULLING AT HIS GOWN AND FEELING RESTLESS AND HUNGRY. PATIENTS AT BEDSIDE AFTER DIALYSIS COMPLETE SHE WIPED ALL SURFACES IN ROOM DOWN WITH BLEACH WIPES AND WAS VERY CONCERNED WITH CONTAMINATION FROM THE DIALYSIS. EXPLAINED TO LORA () THAT EVERYTHING IS FILTERED AND STERILE , BUT SHE WAS FREE TO WIPE THINGS DOWN IF SHE FEELS SHE NEEDS TO. PATIENT GIVEN HIS DINNER, HE TOOK A BITE OF FISH AND KEPT IT IN HIS MOUTH I HAD TO REMIND HIM TO CHEW AND SWALLOW THE BITE. DINNER REMOVED DUE TO ASPIRATION RISK, PATIENT ABLE TO EAT A FEW BITES OF ICE CREAM AND DRINK A SMALL AMT OF NEPRO WITH OUT DIFFICULTY, PATIENT VERBALIZED FEELING FULL. PATIENTS VERBALIZED CONCERN REGARDING HIM NOT BEING ABLE TO EAT THE LAST FEW DAY. EXPLAINED TO AND PATIENT THAT DUE TO HIS SWOLLEN ABD.
[2019-11-09 23:23] LABS: International Normalized Ratio 1.79; Prothrombin Time Results 18.5 Sec (9.7-11.5)
--- NOTE | 2019-11-09 23:30 | NUR ---
PATIENT RESTLESS AND C/O PAIN TO HIS ABD AND LEGS. PATIENT AND HIS NOT WANTING FENTANYL FOR PAIN DUE TO CAUSING INCREASED RESTLESSNESS AND ITCHING. DOCTOR CLIFF CALLED AND ONE TIME ORDER FOR MORPHINE ORDERED.
--- NOTE | 2019-11-10 00:05 | NUR ---
PATIENT SLEEPING WITH EVEN RESP. PLAN TO HOLD MORPHINE AT THIS TIME
--- NOTE | 2019-11-10 03:37 | NUR ---
PATIENT AWAKE AND COUGHING A DRY NONPRODUCTIVE COUGH. BIOX DOWN TO 93% FROM 96% LUNG SOUND NOW HAVE FINE CRACKLES LEFT BASE. IV FLUIDS OFF, AND PATIENT WILL ONLY HAVE ICE CHIPS TO MOISTEN MOUTH FOR THE REST OF THE NIGHT. PATIENT CONTINUES TO BE IMPULSIVE BOTH ARMS APPEAR MORE JUMPY AND POOR COORDINATION. PATIENTS CONCERNED THAT TAKING THE PROBIOTICS AND THE RIFAXIMIN AT THE SAME TIME IS THE REASON FOR HER HUSBANDS INCREASED CONFUSION AND RESTLESSNESS.
[2019-11-10 04:15] LABS: BASOPHILS ABSOLUTE AUTO 0.02 K/mm3 (0.00-0.23); BASOPHILS PERCENT AUTO 0 % (0-2); EOSINOPHILS ABSOLUTE AUTO 0.01 K/mm3 (0.00-0.68); EOSINOPHILS PERCENT AUTO 0 % (0-6); Hematocrit 37.2 % (37.0-53.0); Hemoglobin 12.5 g/dL (13.5-17.5); IMMATURE GRAN ABSOLUTE AUTO 0.08 K/mm3 (0.00-0.10); IMMATURE GRAN PERCENT AUTO 1 % (0-1); LYMPHOCYTES ABSOLUTE AUTO 0.69 K/mm3 (0.84-5.20); LYMPHOCYTES PERCENT AUTO 12 % (21-46); MONOCYTES ABSOLUTE AUTO 0.39 K/mm3 (0.16-1.47); MONOCYTES PERCENT AUTO 7 % (4-13); Mean Corpuscular HGB 30.7 pg (26.0-34.0); Mean Corpuscular HGB Conc 33.6 g/dL (31.5-36.5); Mean Corpuscular Volume 91 fL (80-100); Mean Platelet Volume 10.2 fL (9.1-12.4); NEUTROPHILS ABSOLUTE AUTO 4.66 K/mm3 (1.96-9.15); NEUTROPHILS PERCENT AUTO 80 % (41-73); Platelet Count 217 K/mm3 (150-400); RDW Coefficient Variation 18.4 % (11.7-14.2); RDW Standard Deviation 60.5 fL (35.1-46.3); Red Blood Cell Count 4.07 M/mm3 (4.30-5.90); White Blood Cell Count 5.85 K/mm3 (4.00-11.30)
[2019-11-10 04:34] LABS: Albumin, Blood 2.3 g/dL (3.4-5.0); Albumin/Globulin Ratio 0.5 (0.8-1.8); Bilirubin, Total 3.8 mg/dL (0.1-1.0); Bun/Creatinine Ratio 11.9 (12.0-20.0); Creatinine, Blood 6.96 mg/dL (0.60-1.20); Globulin, Blood 4.6 g/dL (2.2-4.0); Magnesium, Blood 2.5 mg/dL (1.6-2.4); Potassium, Blood 5.6 mmol/L (3.5-5.5); Total Protein, Blood 6.9 g/dL (6.4-8.2)
[2019-11-10 04:56] LABS: Phosphorus, Blood 9.6 mg/dL (2.5-4.9)
--- NOTE | 2019-11-10 06:00 | NUR ---
SUMMARY PATIENT APPEARS MORE RESTLESS AND AGITATED THIS MORNING, WANTING TO GET UP, VERBALIZING URGE TO URINATE. PATIENTS ASSISTING PATIENT WITH THE URINAL PATIENT UNABLE TO VOID. BLADDER SCAN NOT DONE DUE TO PATIENT HAVING LARGE AMT OF ASCITES WHICH WOULD GIVE A FALSE READING. PATIENT ALSO APPEARS MORE SHAKY AND HAS A DIFFICULT TIME HOLDING A SMALL GLASS OF WATER WITHOUT SPILLING IT. PATIENT NO LONGER FEELING SOB AND DRY COUGH HAS NOT CONTINUED. DOCTOR STOVALL IN TO SEE PATIENT, NO NEW ORDERS. PATIENT ABLE TO TAKE HIS 0600 MEDS WITHOUT DIFFICULTY, NEEDING ASSISTANCE WITH HOLDING THE GLASS FOR HIM. AT BEDSIDE PROVIDING GOOD SUPPORT.
[2019-11-10] MEDS ORDERED: ALBU2.5V5 INH (07:38)
--- NOTE | 2019-11-10 08:30 | NUR ---
ASSUMED CARE: REPORT RECEIVED FROM TERESE Elkins RN. ASSUMED CARE OF THIS PT AT APPROX 0700. ON ASSESSMENT, THE PT IS AWAKE & CONFUSED. HE IS MAKING REPETETIVE STATEMENTS & IS TREMULOUS TO EXTREMITIES. PT ATTEMPTS TO CLIMB OOB PERIODICALLY BUT REDIRECTS WELL, SPOUSE AT BEDSIDE. LS COARSE IN BASES, PT W/ INTERMITTENT C/O SOB. PT ON RA W/ O2 SATS > 92%. MONITOR SHOWS SR W/ HR 90s, BP STABLE. ABD IS FIRM, ROUND & DISTENDED. PT HAS BEEN UNABLE TO VOID SINCE DIALYSIS YESTERDAY & PLAN IS FOR DIALYSIS AGAIN TODAY. DRESSING CHANGES & MEDICATED CREAM TO BLE WOUNDS COMPLETED DAILY. TONY Montano, CLINICAL COORDINATOR, HAS BEEN AT BEDSIDE TO SPEAK W/ PT's SPOUSE THIS AM REGARDING CARE BEING PROVIDED TO PT. WILL CONTINUE TO MONITOR & UPDATE NEEDED.
--- NOTE | 2019-11-10 10:56 | NUR ---
DR DOOLEY: PROVIDER AT BEDSIDE TO EVAL PT. HER & PT's SPOUSE HAVE DISCUSSED POC & CURRENT AMMONIA LEVEL ORDERED TO BE DRAWN PER REQUEST OF PT's .
--- NOTE | 2019-11-10 12:51 | NUR ---
DRESSING CHANGE: DRESSING CHANGE COMPLETED TO BLE & OINTMENT APPLIED ORDERED.
--- NOTE | 2019-11-10 16:43 | NUR ---
Brief visit this AM. Pt resting in bed and keeps repeating that he wants a milk shake. Pt's is at bedside and states now is not a good time for a visit. Pt's reports no concerns at this time. Spoke with bedside RN Aleta and discussed case. Palliative Care will remain available.
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
--- NOTE | 2019-11-10 18:46 | NUR ---
SHIFT SUMMARY: NO ACUTE CHANGES SINCE PRIOR UPDATES. HD COMPLETED THIS AFTERNOON W/ 2L OFF PER MARY INGRAM. PT IS INCREASINGLY CONFUSED & CONTINUES TO STATE THE SAME PHRASES REPETETIVELY, GETTING ANGRY W/ STAFF & HIS IF NOT UNDERSTANDING HIS GARBLED SPEECH. LS REMAIN COARSE IN BASES, PT ON RA W/ O2 SATS > 92%. MONITOR SHOWS SR W/ HR 90s, HYPOTENSION NOTED AFTER HD. PT ATTEMPED TO HAVE BM THIS AFTERNOON BUT WAS UNSUCCESSFUL. HE HAS ALSO NOT VOIDED THIS SHIFT EXCEPT FOR SMALL INCONTINENT DRIBBLE NOTED ON BEDSHEETS. WOUND CARE HAS BEEN COMPLETED ORDERED & LINEN CHANGED ALSO PER REQUEST OF SPOUSE. WILL CONTINUE TO MONITOR & REPORT OFF TO ONCOMING RN.
--- NOTE | 2019-11-10 21:57 | NUR ---
START OF SHIFT: BEDSIDE REPORT FROM SHANI HERNANDEZ. PT VSS, CALM AND COOPERATIVE. PT'S AT BEDSIDE. PT WITH DRESSINGS TO LOWER EXTREM AND ARE DCI- STATED AT START OF SHIFT DID NOT WANT DRESSING CHANGES THIS EVENING AND STATED, "DRESSING CHANGES THAT OFTEN IS NOT APPROPRIATE FOR HIM". PT'S ALSO REFUSED PT TO RECEIVE, HIS HEPARIN, RIFAXIMIN, AND AMPHOGEL. PT WAS ABLE TO SWALLOW [place] WITH APPLESAUCE AND WATER. OTHERWISE PT PLEASANT, SLIGHTLY CONFUSED BUT KNEW FAMILY, PLACE, AND SELF BUT COULDN'T STATE BIRTHDAY. PT REPOSITIONED PER 'S INSTRUCTION. WILL CONTINUE TO MONITOR.
[2019-11-11 04:15] LABS: BASOPHILS ABSOLUTE AUTO 0.02 K/mm3 (0.00-0.23); BASOPHILS PERCENT AUTO 0 % (0-2); EOSINOPHILS ABSOLUTE AUTO 0.05 K/mm3 (0.00-0.68); EOSINOPHILS PERCENT AUTO 1 % (0-6); Hemoglobin 11.3 g/dL (13.5-17.5); IMMATURE GRAN ABSOLUTE AUTO 0.08 K/mm3 (0.00-0.10); IMMATURE GRAN PERCENT AUTO 1 % (0-1); LYMPHOCYTES ABSOLUTE AUTO 1.04 K/mm3 (0.84-5.20); LYMPHOCYTES PERCENT AUTO 13 % (21-46); MONOCYTES ABSOLUTE AUTO 1.11 K/mm3 (0.16-1.47); MONOCYTES PERCENT AUTO 13 % (4-13); Mean Corpuscular HGB 29.8 pg (26.0-34.0); Mean Corpuscular HGB Conc 32.3 g/dL (31.5-36.5); Mean Corpuscular Volume 92 fL (80-100); Mean Platelet Volume 10.2 fL (9.1-12.4); NEUTROPHILS ABSOLUTE AUTO 5.98 K/mm3 (1.96-9.15); NEUTROPHILS PERCENT AUTO 72 % (41-73); NRBC ABSOLUTE 0.03 K/mm3 (0.00-0.02); NRBC Auto 0.4 /100 WBC (0.0-0.2); Platelet Count 152 K/mm3 (150-400); RDW Coefficient Variation 18.6 % (11.7-14.2); Red Blood Cell Count 3.79 M/mm3 (4.30-5.90); White Blood Cell Count 8.28 K/mm3 (4.00-11.30)
[2019-11-11 04:31] LABS: International Normalized Ratio 2.21; Prothrombin Time Results 22.6 Sec (9.7-11.5)
[2019-11-11 04:32] LABS: Albumin, Blood 2.3 g/dL (3.4-5.0); Albumin/Globulin Ratio 0.5 (0.8-1.8); Bilirubin, Direct 2.7 mg/dL (0.0-0.3); Bilirubin, Indirect 1.2 mg/dL (0.1-0.7); Bilirubin, Total 3.9 mg/dL (0.1-1.0); Bun/Creatinine Ratio 11.2 (12.0-20.0); Calcium, Blood 7.9 mg/dL (8.5-10.1); Creatinine, Blood 6.81 mg/dL (0.60-1.20); Globulin, Blood 4.3 g/dL (2.2-4.0); Magnesium, Blood 2.7 mg/dL (1.6-2.4); Potassium, Blood 5.3 mmol/L (3.5-5.5); Total Protein, Blood 6.6 g/dL (6.4-8.2)
[2019-11-11 04:57] LABS: Phosphorus, Blood 9.5 mg/dL (2.5-4.9)
--- NOTE | 2019-11-11 07:26 | NUR ---
SHIFT SUMMARY: PT RESTED ON AND OFF T/O NOC, DID HIS . PT AWAKENED AT APPRX 0000 AND SINCE GREW INCREASINGLY AGGITATED AND ANXIOUS. VITALS REMAINED STABLE. PT THIS AM C/O NOT BEING ABLE TO BREATH AND WAS BROUGHT INTO A HIGH FOWLERS POSITION. PT'S ABDOMEN INCREASINGLY FIRM. DR. STOVALL TO BEDSIDE THIS AM AND VERBALIZED TEACHING TO PT'S SPOUSE REGARDING AMPHOGEL, DIALYSIS, AND PARACENTESIS. PT REMAINS IN HIGH FOWLERS AND APPEARS TO BE TOLERATING. SPOUSE REMAINS AT BEDSIDE. BEDSIDE REPORT TO YASMINE HERNANDEZ.
--- NOTE | 2019-11-11 07:30 | NUR ---
Received report from Rhianna MATIAS. Patient awake and able to communicate most needs and [facility] what care and meds they will allow. I reviewedam meds and she told me when they would accept and at what intervals. He is on RA and sats mid 90%'s. He has 18ga PowerGlide in LEROY flushed and saline locked and dressing intact and site WNL's. He has newly placed dialysis cath in RU chest and has dialysis planned for 1300. Dr Clarke wants Para centesis done prior to dialysis. Will call US and try to schedule around Dialysis. He also has 20ga IV in LW and is flushed and SL'd. He has bilateral LEweepin edema and celullitus with dressings to bilateral calves. stated no dressing changes this am and he has too dayton things going on and would tax his energy. VSS see EMAR.
--- NOTE | 2019-11-11 09:00 | NUR ---
Medicated lactobacillus and stated no med for two hours after this, also got order for Comazine as stated he does not like Zofran. She stated I would need to wait 2 hours before giving amphogel and any other meds until he was ready. Rt was called for breathing treatment as staed she told some one else an hour ago and they came for breathing treatment. After treatment he stated that he was having breathing proiblema nd could not explain what they were. Evelyn RN and I placed socks on patient and assisted him to bedside, i told him not to try to stand as earlier i talked with PT and they stated he was unstable. He stood anyways and i had im sit back down andhe would not. Had Evelyn get linen and finally got him to sit on bed until ready for linen change. He stood one more time with 1 assist and all bewd linen changed. It took two to lay back in bed and slid up. very attomate about not letting socks touch bed as that had touches floor and also requested all pillow cases changed because they touched bedside tables. Placed dry flows under legs and elevated. She still stated no LE dressing change. I discussed several times that we were trying to schedule Paracentesis and that it would be done before dialysis and she kept stating no paracentesis if delaying Dialysis . I told her many times that Dr Aidan Clarke wanted to relieve pressure to abdomen and Dialysis would be done at ratio to fluid removed and about fourth time she agreed. He remains on RA and sats low to mid 90%'s, VSS see EMR.
--- NOTE | 2019-11-11 11:13 | NUR ---
US called and stated INR (2.4) was too high and discussed with DR Bermudez and Dialysis and Dr Bermudez wanted order for type and screen and give 1 FFP, US Para scheduled for 1130. The wufe stated no Blood products but doo what Dr Bermudez wants and she kept refusing and she wanted to talk with Dr Bermudez and he called back and stated no FFP and just do Dialysis at 1300. Patient onnly takes amphogel with iced apple juice and pill with apple saucve and sips of iced apple juice, no other way. Gave new sheet and warm blanket. Called Dialysis and Dr Wang and advised no Paracentesis, refused. Dr Wang into see patient and transfered to PCU status and notified Dialysis of nikkie vergara as well. He remains on RA and rachel in low to mid 90%'s, VSS see EMR.
--- NOTE | 2019-11-11 12:13 | NUR ---
Attempted to visit with Pt and . Both resting with their eyes closed. Neither respond to gentle voice. Pt appears comfortable with no S/S of distress at this time. Departed room to allow further rest. Discussed case with bedside RN Saroj prior to visit. Pt currently PCU status. Palliative Care will remain available.
--- NOTE | 2019-11-11 13:45 | NUR ---
Patient and have been sleeping for the last hour or so and she has gone to cafeteria for snack. Dialysis in room starting treatment. VSS see EMR. No significant changes. He remains in ICU r/t no current PCU beds
--- NOTE | 2019-11-11 15:30 | NUR ---
Dialysis is still going. Patient alert with in room and have been talking to each other. No sigmnificant changes. He has been hypotensive during dialysis, but asymptomatic.
--- NOTE | 2019-11-11 17:40 | NUR ---
Dialysis done and Dr Bermudez was in room with patient and has talked with and patient and have stated they agreed to FFP in am although have signed refusal for blood. Dr Clarke has also been in room and came out with and stated patient is doing worse and may not survive the next several days and was upset and went in room and closed door. We also discussed Vit K 10mg IV and she said that would be ok. She called and asked to help him satnd and when went in room she was using Cavi wipes all over bed, sink tables and stated that he had urinated during dialysis and the needs to be disinfected. He wanted to stanbd up and i had Aleta RN assist me and we did full linen change. He was much weaker and i nmeeded to supprt him the whole time and would not stand straight up and wanted to try to sit the entire time. Whe placing him back in bed she started to get mad again when his socks we placed on amost touched bed and I explained to her i knew they were not to touch bed so not to infect new linen. Changed all linen and pillow cases and applied dry flows. The continues to give water and assisting to help pour in mouth even though it has been suggested several times that he could aspirate. She refused med after Dialysis and i explained they were late and she stated that she need to talk with him and would not want to take them. Vit K was accepted. VSS see EMR.
--- NOTE | 2019-11-11 18:42 | NUR ---
Routine spiritual care note: Met with spouse this AM. She remains in denial of pts dx and went on several wild gnosticism tirades throughout my visit. Louis mumbled non-stop incoherantly and appeared weak. I suspect it is because I don't challenge Carmelina's unrealistic expectations that she is responsive to me. Regardless, she asked me to pray for Louis at bedside. Encouraged breaks and self-care. For now, we have a good rapport. I will remain available.
--- NOTE | 2019-11-11 21:00 | NUR ---
[place] of Care: Care assumed at 1900hr. Patient awake but slightly drowsy, responding to verbal stimuli. Speech slightly slurred, but able to answer yes/no questions appropriately. Patient confused to time/date, reason for admission, orient self. Patient c/o ABD pain, given x1 prn [place] with good effect noted. Denies dyspnea SOB, O2-95% on RA, lucero sounds clear. Severe abd distention, bowel tones hypoactive, unchanged according to day shift RN, plan for paracentesis 11/12/19. Leg wounds cellulitis to BLE's, dressing changed r/t displacement, now C/D/I. Power-glide to lrt upper arm patent and intact. Patient swallowed pills whole in applesauce without difficulty. While assessing patient/providing care, patient's continually talks over patient, not allowing him to answer questions. Patient's also stating he is refusing cares/medications with staff/this nurse hearing him refuse, i.e. ( states patient does not want dressings changed, then patient agree's to dressing change when asked). Patient's also refusing administration of Amphogel, stating "its toxic to his liver and will hasten his ". Patient's educated on reason for this medication and that ordering physician is fully aware of patient's condition and co-morbitities. Patient's continues to adamantly refuse this medication.
[2019-11-12 04:18] LABS: BASOPHILS ABSOLUTE AUTO 0.01 K/mm3 (0.00-0.23); BASOPHILS PERCENT AUTO 0 % (0-2); EOSINOPHILS ABSOLUTE AUTO 0.17 K/mm3 (0.00-0.68); EOSINOPHILS PERCENT AUTO 2 % (0-6); Hematocrit 32.9 % (37.0-53.0); IMMATURE GRAN ABSOLUTE AUTO 0.08 K/mm3 (0.00-0.10); IMMATURE GRAN PERCENT AUTO 1 % (0-1); LYMPHOCYTES ABSOLUTE AUTO 1.18 K/mm3 (0.84-5.20); LYMPHOCYTES PERCENT AUTO 17 % (21-46); MONOCYTES ABSOLUTE AUTO 0.91 K/mm3 (0.16-1.47); MONOCYTES PERCENT AUTO 13 % (4-13); Mean Corpuscular HGB 30.6 pg (26.0-34.0); Mean Corpuscular HGB Conc 33.4 g/dL (31.5-36.5); Mean Corpuscular Volume 92 fL (80-100); NEUTROPHILS ABSOLUTE AUTO 4.62 K/mm3 (1.96-9.15); NEUTROPHILS PERCENT AUTO 66 % (41-73); NRBC ABSOLUTE 0.03 K/mm3 (0.00-0.02); NRBC Auto 0.4 /100 WBC (0.0-0.2); Platelet Count 118 K/mm3 (150-400); RDW Coefficient Variation 18.3 % (11.7-14.2); RDW Standard Deviation 61.1 fL (35.1-46.3); Red Blood Cell Count 3.59 M/mm3 (4.30-5.90); White Blood Cell Count 6.97 K/mm3 (4.00-11.30)
[2019-11-12 04:41] LABS: Albumin, Blood 2.4 g/dL (3.4-5.0); Albumin/Globulin Ratio 0.6 (0.8-1.8); Bilirubin, Total 4.6 mg/dL (0.1-1.0); Bun/Creatinine Ratio 10.2 (12.0-20.0); Creatinine, Blood 6.2 mg/dL (0.60-1.20); Globulin, Blood 3.9 g/dL (2.2-4.0); Potassium, Blood 4.4 mmol/L (3.5-5.5); Total Protein, Blood 6.3 g/dL (6.4-8.2)
[2019-11-12 05:25] LABS: Magnesium, Blood 2.6 mg/dL (1.6-2.4)
[2019-11-12 05:41] LABS: Phosphorus, Blood 8.2 mg/dL (2.5-4.9)
[2019-11-12 06:31] LABS: International Normalized Ratio 2.33; Prothrombin Time Results 23.8 Sec (9.7-11.5)
--- NOTE | 2019-11-12 07:15 | NUR ---
BEDSIDE REPORT WITH TEN HERNANDEZ. ASSUMED PT CARE. PT ALERT, ANSWERS BASIC QUESTIONS. SPEECH SLURRED.
--- NOTE | 2019-11-12 07:30 | NUR ---
ASSESSMENT CHARTED. VSS. AT BEDSIDE. DADA VERY PARTICULAR WITH HOW PT IS MANAGED.
--- NOTE | 2019-11-12 07:40 | NUR ---
Shift Summary: Patient slept off/on throughout shift, no longer than approx 2 1/2 hour period. Continues to c/o pain to ABD and restless in bed at times. PRN [place] given x2, along with frequent repositioning effective to manage pain and or restlessness. VS remain stable, O2-95% on RA, continues to deny dyspnea/SOB. Patient's confusion slowly increased throughout shift, then improved to a/o noted at start of shift. Responding to verbal stimuli, answering yes/no questions appropriately, and short simple sentences. Sharron Rn provided patient's with printed lab values from this morning blood draw. Bedside report given to day shift RN. All of patient's questions answered to her satisfaction.
[2019-11-12 07:58] LABS: ANTIGLOMERULAR BM AB 4 units (0-20)
--- NOTE | 2019-11-12 08:19 | NUR ---
PT EATING BREAKFAST, PT DADA FEEDING HIM. MEDICATED WITH MEDS PER EMAR THAT PT WILL ALLOW PT TO RECEIVE.
--- NOTE | 2019-11-12 09:15 | NUR ---
DR DOOLEY TO BEDSIDE. PLAN TO GET U/S OF ABD, PLAN TO HAVE PARACENTESIS DONE TODAY BY RADIOLOGIST. UPDATED.
--- NOTE | 2019-11-12 09:42 | NUR ---
U/S STAFF AT BEDSIDE FOR EXAM. WILL TAKE PT TO DIALYSIS AFTER.
--- NOTE | 2019-11-12 10:00 | NUR ---
PT TO DIALYSIS.
--- NOTE | 2019-11-12 12:54 | NUR ---
PT RETURNED TO ROOM BY THIS RN FROM DIALYSIS. WITH PT. VSS. PT DENIES PAIN. LUNCH TRAY HEATED AND PROVIDED TO PT.
--- NOTE | 2019-11-12 13:16 | NUR ---
PT STATES THAT PT DOESNT WANT THE FOOD ON LUNCH TRAY. REQUESTING NEW MENU AND A GRILLED CHEESE MADE WITH SOURDOUGH AND MALAGASY CHEESE. PT ALSO REQUESTING COTTAGE CHEESE. REQUEST PLACED IN [facility]. PT SHEETS FIXED. OLD TRAY CLEARED. PT ALSO ASKING WHEN PT WILL HAVE PARECENTESIS. EXPLAINED TO PT THAT WE ARE WAITING FOR LAB RESULTS.
--- NOTE | 2019-11-12 13:46 | NUR ---
PT UP TO BSC AND BACK TO BED. PHYSICAL THERAPY TO ROOM.
[2019-11-12 14:11] LABS: Prothrombin Time Results 20.6 Sec (9.7-11.5)
--- NOTE | 2019-11-12 14:55 | NUR ---
THERAPY COMPLETE. THERAPIST TO THIS RN DISCUSSING THAT THE IS CONCERNED ABOUT MULTIPLE THINGS BUT STATES THAT SHE IS NOT TO SPEAK "TO THE NURSE" THIS RN TO ROOM TO DISCUSS WIFES CONCERNS. THIS RN EXPLAINED TO PT THAT IT IS IMPORTANT TO RELAY ALL CONCERNS TO PRIMARY NURSE SO THAT THE APPROPRIATE CONSULTS/COMMUNICATION CAN BE MADE. PT STATES SHE DIDNT BRING UP HER CONCERNS TODAY DUE TO THE "DOCTOR BEING BUSY AND RUSHING OUT" STATES THAT SHE HAS TOLD MULTIPLE PEOPLE ABOUT PTS SPEECH GETTING WORSE SINCE PERMACATH PLACED 11/09. PT CONCERNED ABOUT THE BRUISING AROUND THE SITE OF THE PERMACATH. PT CONCERNED ABOUT PT NOT BEING ABLE TO SPEAK CLEARLY OR DRINK FROM A STRAW. PT CONCERNED THAT PT ISNT ABLE TO FOCUS EYES OR SEE GOOD, "COULD IT BE MACULAR DEGENERTION OR SOMETHING" PT TALKS ABOUT MANY POSS MEDICAL REASONS THAT ARE OUT OF CONTEXT. PT STATES SHE LOOKS THINGS UP AND DOES RESEARCH AND THAT SHE DOESNT BELIEVE THIS IS A RESULT OF PT CURRENT MEDICAL STATUS. PT DISCUSSES THE IMPORTANCE OF THE PT GETTING BETTER SO HE CAN BE TRANSPORTED TO [place] FOR TRANSPLANT. THIS RN SPOKE WITH DR DOOLEY RE PT CONCERNS ABOUT SPEECH AND DECREASE IN INTAKE. SPEECH THERAPY CONSULT PLACED.
--- NOTE | 2019-11-12 15:29 | NUR ---
PARACENTESIS COMPLETE. 4L DRAINED, PT ELBA WELL. SPECIMEN TO LAB FOR POTENTIAL TESTING. LUCIANA HOOPER TO ROOM.
[2019-11-12 15:55] LABS: Automated BF WBC Count 0.253 K/mm3 (0-999); Body Fluid WBC Count 253 /mm3 (0-999)
[2019-11-12 16:06] LABS: ALBUMIN 3.2 g/dL (2.9-4.4); ALPHA-1-GLOBULIN 0.2 g/dL (0.0-0.4); ALPHA-2-GLOBULIN 0.5 g/dL (0.4-1.0); BETA GLOBULIN 0.8 g/dL (0.7-1.3); GAMMA GLOBULIN 1.8 g/dL (0.4-1.8); GLOBULIN, TOTAL 3.3 g/dL (2.2-3.9); IMMUNOGLOBULIN A, QN, SERUM 246 mg/dL (61-437); IMMUNOGLOBULIN G, QN, SERUM 2561 mg/dL (700-1600); IMMUNOGLOBULIN M, QN, SERUM 199 mg/dL (15-143); M-SPIKE Not Observed g/dL (Not Observed); PROTEIN, TOTAL, SERUM 6.5 g/dL (6.0-8.5)
[2019-11-12 16:08] LABS: Albumin, Body Fluid 0.6 g/dL; Lactate Dehydrogenase, Body Fl 199 U/L; Protein, Body Fluid 1.6 g/dL
--- NOTE | 2019-11-12 16:09 | NUR ---
PT ASKING US TO PAGE DR HAMPTON RE GETTING DRAINAGE FROM ABD TESTED FOR MULTIPLE THINGS. EXPLAINED THAT BERTA IS IN A CASE, WILL NOTIFY WHEN HE IS DONE.
--- NOTE | 2019-11-12 16:22 | NUR ---
Pt resting in bed with his eyes closed for much of the visit. Pt does attempt to speak twice during visit. Pt states "I need to see a dentist". Pt appears moderatley confused. Offered therapetuic listening to Pt's Puja. Listened as Puja reports making a plan with the Pt. Puja reports Dr Bermudez reports he will regain his strength by eating and Puja has been encouraging Pt to eat. Listened as Puja reports Pt has been experiencing terminal restless wanting to continually get up out of bed then lye back down. Puja reports her plan is still for Pt to stabalize and travel to [facility] and [place]. She reports Dr Bermudez can set up dialysis for their stops for the route they intend to take. Continued therapeutic listening then ended visit to allow Puja to eat and rest. Spoke with Bedside RN Kain and discussed case. Palliative Care will remain available.
--- NOTE | 2019-11-12 16:34 | NUR ---
ABX STARTED. PT SLEEPING, PROBIOTIC NOT GIVEN AT THIS TIME PER WIFES REQUEST. NEW RECLINER PROVIDED. PT SLEEPING, NADN, RESP EVEN AND NON LABORED.
[2019-11-12 16:35] LABS: RBC Count, Body Fluid 722 /mm3 (0-0)
[2019-11-12 16:38] LABS: Appearance, Body Fluid Hazy (Clear); Color, Body Fluid Yellow (None-Yellow)
[2019-11-12 16:41] LABS: pH, Body Fluid 7.3
[2019-11-12 16:47] LABS: Total Cell Count, Body Fluid 100
--- NOTE | 2019-11-12 18:00 | NUR ---
DINNER TRAY PROVIDED, PT SLEEPING. PLACED AT BEDSIDE.
--- NOTE | 2019-11-12 18:44 | NUR ---
THIS RN TO ROOM, PT STATES "THIS DINNER TRAY IS AN HOUR OLD AND I WONT GIVE IT TO HIM. I DONT WANT HIM TO GET FOOD POISONING" EXPLAINED TO PT THAT TRAY WAS DELIVERED AROUND 6PM. REFUSES TO LET PT EAT IT AND STATES "I GUESS HE DOESNT GET TO EAT TONIGHT"
--- NOTE | 2019-11-12 19:15 | NUR ---
REPORT TO TEN HERNANDEZ.
--- NOTE | 2019-11-12 21:28 | NUR ---
[place] of Care: Care assumed at 1900hr. Patient alert, oriented to self, place, and family. Speech more clear tonight r/t previous shift, speaking more complete sentences and verbalizing needs. Stood and transferred from bedside commode and back to bed x2 so far this shift without difficulty, 2 person assist. C/o pain to ABD, x1 prn [place] given, will monitor for effect. VSS, O2-93% on RA, denies dyspnea/SOB. Dr. Clarke to room early in shift. Patient's had several questions for Dr. Clarke but continually interrupted him when trying to speak. Received new order per Dr. Clarke for hydrocortisone cream to rectum BID. Call then placed to Dr. Bermudez, r/t patient's continuing to refuse administration of Amphogel. Received order per to d/c Amphogel, and new order for Phoslo gel caps, 1 tab TID with meals. Also spoke with Denice SUTHERLAND, and received order to change Bactroban ointment to able to apply to wounds and redness to legs. Power-glide to LEROY patent and intact. Peripheral IV to lt wrist patent and intact. Tolerating PO fluids and pills whole in applesauce without difficulty. Call light in reach. Makes needs known. Will continue to monitor.
[2019-11-13 04:43] LABS: BASOPHILS ABSOLUTE AUTO 0.02 K/mm3 (0.00-0.23); BASOPHILS PERCENT AUTO 0 % (0-2); EOSINOPHILS PERCENT AUTO 4 % (0-6); Hematocrit 33.9 % (37.0-53.0); Hemoglobin 11.2 g/dL (13.5-17.5); IMMATURE GRAN ABSOLUTE AUTO 0.09 K/mm3 (0.00-0.10); IMMATURE GRAN PERCENT AUTO 1 % (0-1); LYMPHOCYTES ABSOLUTE AUTO 1.21 K/mm3 (0.84-5.20); LYMPHOCYTES PERCENT AUTO 17 % (21-46); MONOCYTES ABSOLUTE AUTO 0.87 K/mm3 (0.16-1.47); MONOCYTES PERCENT AUTO 13 % (4-13); Mean Corpuscular HGB 30.5 pg (26.0-34.0); Mean Corpuscular Volume 92 fL (80-100); Mean Platelet Volume 11.7 fL (9.1-12.4); NEUTROPHILS ABSOLUTE AUTO 4.46 K/mm3 (1.96-9.15); NEUTROPHILS PERCENT AUTO 64 % (41-73); NRBC ABSOLUTE 0.02 K/mm3 (0.00-0.02); NRBC Auto 0.3 /100 WBC (0.0-0.2); Platelet Count 89 K/mm3 (150-400); RDW Coefficient Variation 18.3 % (11.7-14.2); RDW Standard Deviation 62.1 fL (35.1-46.3); Red Blood Cell Count 3.67 M/mm3 (4.30-5.90); White Blood Cell Count 6.95 K/mm3 (4.00-11.30)
[2019-11-13 04:56] LABS: International Normalized Ratio 1.94
[2019-11-13 05:01] LABS: Magnesium, Blood 2.7 mg/dL (1.6-2.4)
[2019-11-13 05:14] LABS: Albumin, Blood 2.3 g/dL (3.4-5.0); Albumin/Globulin Ratio 0.6 (0.8-1.8); Bilirubin, Total 5.5 mg/dL (0.1-1.0); Bun/Creatinine Ratio 9.3 (12.0-20.0); Calcium, Blood 8.1 mg/dL (8.5-10.1); Globulin, Blood 3.7 g/dL (2.2-4.0); Phosphorus, Blood 7.6 mg/dL (2.5-4.9)
--- NOTE | 2019-11-13 06:21 | NUR ---
Shift Summary: Patient slept well throughout shift. C/o pain x2 to ABD, effectively managed with prn [place] x2 tabs. Continues to deny dyspnea/SOB, O2-94-95% on RA. VS remain stable. Able to stand/pivot to bedside commode x2 early in shift without difficulty. Patient continues to be alert when awake, and now able to voice needs (r/t previous NOC shift). Call light in reach, and using appropriately. tolerating 800ml PU fluid intake without difficulty. Power-glide to lt upper arm remains patent and intact. Will continue to monitor until report to day shift RN.
--- NOTE | 2019-11-13 08:29 | NUR ---
ASSUMED CARE RECEIVED REPORT FROM MARY CAAL. PT IS IN BED SOMEWHAT ALERT AND ORIENTED TO SELF, PLACE, AND YEAR. BUT HE SEEMS OFF MENTALLY. HE MOANS, MUMBLES, AND HIS SPEECH IS SLURRED. HE ALSO RAMBLES. VITALS STABLE, RHYTHM IS SINUS. AT BEDSIDE AND IS INVOLVED IN THE CARE. BED LOW AND LOCKED. CALL LIGHT WITHIN REACH.
--- NOTE | 2019-11-13 10:41 | NUR ---
UPDATE PT LEFT FOR DIALYSIS AT 0923; WE ARE HOLDING OFF ON THE MUPIROCIN AND RIFAXICIN PER PT'S REQUEST. STATING "HE NEEDS TO TAKE THE ANTIBIOTIC AT LEAST 2 HOURS AFTER HAVING A PROBIOTIC."
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
--- NOTE | 2019-11-13 14:12 | NUR ---
UPDATE STATES THAT NEEDS A NAP AFTER DIALYSIS AND WANTS ME TO DO HIS 1400 MUPIROCIN AFTER HIS NAP. I HAVE EDUCATED ABOUT THE NEED FOR PHYSICAL THERAPY AND SPEECH THERAPY, BUT SHE INSISTS THAT HE NEEDS REST RIGHT NOW. THEY WILL COME BACK AGAIN TOMORROW.
--- NOTE | 2019-11-13 18:58 | NUR ---
sat with patient anjel she went to medical records. pt was alert, minimal movment very fatigued, rarely blinks. pt was very talkative the entire time. He enjoyed the companionship. He expressed great concern and love for his . He stated he would stay the course because he does not want to leave her and she fights for him.he also stated he know he is dying and has been thinking about it a lot. He has brought it to the concluesison that weather he tries to get care on does notheing it is all the same. acknowledged his love and commitmment and undrerstanding. he wnet on to speak of his krupa and the bible. We then discussed suffering. He states the dialysis has helped his breathing a little bit. We then discussed the ultimate outcome of his . He state he has not yet made complet peace but is starting to accept it. We discussed to concept of holistic mind body and spitual care and his wifes suffering. suggested it care is to exprordinary and his is haveing to much distress over his decline he tells her it is enough and he has a peacful holding her hand and that he might discuss that with her. Advised him that will will support his and help her get through this. he was appreciative. pt returned and we reviewed her stressors and encouraged her to accept support. She is very immersed in his medical needs and focused on care planning. She states she spoke with kady garcia and it gave her comfort. Will continue to try to move them forward to accepting an alternate plan. She till palns on driving and she has questions on stratigies on dialysis. Reviewed with her on how dialysis and travel work and [facility]. Advised her that she will need an intake with the clinic in order to travel. It might be best to encourage her to go back to [place] and be near their family there and seek care at another hospital.
--- NOTE | 2019-11-13 20:00 | NUR ---
SHIFT SUMMARY PT HAD DIALYSIS TODAY, REMOVING 2600ML. ALONG WITH A MEETING WITH PALLIATIVE CARE, AND HAD A LONG NAP (DIDN'T GET MUCH SLEEP LAST NIGHT). HE IS ALERT AND ORIENTED TO SELF, PLACE, YEAR, AND . PC INFORMS ME HE WANTS HIS TO ADVOCATE LIKE SHE HAS BEEN DOING, THAT COMMUNICATING FOR HIM IS FINE WITH HIM. READ PC'S NOTE FOR IN DEPTH UNDERSTANDING OF DYNAMICS AT PLAY. HE IS ON ROOM AIR, SALINE LOCKED, AND REFUSED SCDs. IS PARTICULAR WITH CARE. STATES HE HAS ISSUES WITH CELLULITIS. HIS LEGS LOOK THAT WAY. HE STATES HE FEELS HE CAN BREATHE BETTER AFTER DIALYSIS. HE HAS PAIN IN HIS RLQ IN THE AREA WHERE HE GOT HIS PARACENTESIS, HE STATES IT FEELS BETTER AFTER BELCHING. BED LOW AND LOCKED. CALL LIGHT WITHIN REACH. AT BEDSIDE ALL DAY.
--- NOTE | 2019-11-13 21:00 | NUR ---
ASSUMPTION OF CARE ASSUMED CARE OF PT @ 1915, PT AWAKE IN BED, ORIENTED TO SELF, PLACE, SITUATION AND FOLLOWING DIRECTIONS, SLURRED SPEECH NOTED. O2 SATURATIONS> 95% ON RA, MONITOR SHOWS SINUS RHYTHM WITH HR 80'S-90'S. EDEMA TO BLE, WEEPING, ABSORBENT PADS IN PLACE. ABDOMENT DISTENDED AND FIRM, PT STS SOME PAIN TO R SIDE, BETTER AFTER PAIN MEDICATION ADMINISTRATION AND SOME RELEIF WITH ERUCTATION. PT HAD ONE UNMEASURED VOID, VOID DISCARDED AND 24 HOUR URINE COLLECTION INITIATED.
[2019-11-14 03:43] LABS: BASOPHILS ABSOLUTE AUTO 0.03 K/mm3 (0.00-0.23); BASOPHILS PERCENT AUTO 0 % (0-2); EOSINOPHILS ABSOLUTE AUTO 0.51 K/mm3 (0.00-0.68); EOSINOPHILS PERCENT AUTO 6 % (0-6); Hematocrit 35.4 % (37.0-53.0); Hemoglobin 11.5 g/dL (13.5-17.5); Mean Corpuscular HGB 30.2 pg (26.0-34.0); Mean Corpuscular HGB Conc 32.5 g/dL (31.5-36.5); Mean Corpuscular Volume 93 fL (80-100); Mean Platelet Volume 10.7 fL (9.1-12.4); NRBC ABSOLUTE 0.03 K/mm3 (0.00-0.02); NRBC Auto 0.4 /100 WBC (0.0-0.2); Platelet Count 84 K/mm3 (150-400); RDW Coefficient Variation 18.5 % (11.7-14.2); RDW Standard Deviation 61.8 fL (35.1-46.3); Red Blood Cell Count 3.81 M/mm3 (4.30-5.90)
[2019-11-14 03:49] LABS: Albumin, Blood 2.5 g/dL (3.4-5.0); Albumin/Globulin Ratio 0.7 (0.8-1.8); Bilirubin, Total 7.5 mg/dL (0.1-1.0); Bun/Creatinine Ratio 8.4 (12.0-20.0); Calcium, Blood 8.2 mg/dL (8.5-10.1); Carcinoembryonic Antigen 3.4 ng/mL (0.0-3.0); Creatinine, Blood 5.62 mg/dL (0.60-1.20); Globulin, Blood 3.8 g/dL (2.2-4.0); Magnesium, Blood 2.4 mg/dL (1.6-2.4); Potassium, Blood 3.6 mmol/L (3.5-5.5); Total Protein, Blood 6.3 g/dL (6.4-8.2)
[2019-11-14 03:52] LABS: IMMATURE GRAN ABSOLUTE AUTO 0.08 K/mm3 (0.00-0.10); IMMATURE GRAN PERCENT AUTO 1 % (0-1); LYMPHOCYTES ABSOLUTE AUTO 1.35 K/mm3 (0.84-5.20); LYMPHOCYTES PERCENT AUTO 16 % (21-46); MONOCYTES ABSOLUTE AUTO 0.93 K/mm3 (0.16-1.47); MONOCYTES PERCENT AUTO 11 % (4-13); NEUTROPHILS PERCENT AUTO 65 % (41-73)
[2019-11-14 04:12] LABS: Alpha Feto Protein, Tumor Mkr 18793.5 ng/mL (0.0-8.0)
--- NOTE | 2019-11-14 05:59 | NUR ---
SHIFT SUMMARY NO ACUTE CHANGES THIS SHIFT. PT REMAINS ALERT AND ORIENTED TO SELF, LOCATION AND FOLLOWING DIRECTIONS, SPEECH REMAINS SLURRED. PT REMAINS ON RA, MONITOR SHOWS SINUS RHYTHM, BP STABLE. PT UP TO COMODE THIS SHIFT, 2 PERSON SBA, REQUIRES MANY VERBAL CUES. DRESSING CHANGE TO BLE THIS SHIFT WITH BACTROBAN OINTMENT APPLICATION. PT TOLERATING PO INTAKE, SWALLOWS PILLS WHOLE, DENIES NAUSEA. ABD REMAINS DISTENDED AND FIRM. 24 HOUR URINE COLLECTION INITIATED THIS SHIFT.
--- NOTE | 2019-11-14 09:10 | NUR ---
CARE ASSUMED ASSESSMENT COMPLETED, PT AWAKE, ALERT AND ORINETED, SPEECH SLOW AND SLURRED, THIS IS BASELINE ACCORDING TO RN REPORT. VSS, PT DENIES PAIN AT THIS TIME, ATE SOME BREAKFAST WITHOUT DIFFICULTY. PT JAUNDICED, BRUISING NOTED TO UE'S, LE'S EDEMATOUS, ABX OINTMENT APPLIED PER ORDERS. R INNER THIGH WEEPING, DRESSING CHANGED. PT DENIES C/O AT THIS TIME, IS PLEASANT AND COOPERATIVE. AT BEDSIDE. BELLA DOOLEY AND WILMAN IN TO ASSESS, PT TO DIALYSIS AT 0905.
--- NOTE | 2019-11-14 13:10 | NUR ---
UPDATE PT RETURNED TO ICU 14 FROM DIALYSIS AT 1215, DROWSY BUT REMAINS ORIENTED. TOLERATED PO MEDICATION WELL, REFUSING TO EAT LUNCH STATING HE IS TIRED. VSS, PT NAPPING, REMAINS AT BEDSIDE.
--- NOTE | 2019-11-14 13:57 | NUR ---
UPDATE PT VOIDED, URINE ADDED TO 24 HOUR URINE COLLECTION CONTAINER, ICE REFRESHED FOR SPECIMEN. P/T AT BEDSIDE FOR THERAPY, PT AWAKE AND COOPERATIVE.
--- NOTE | 2019-11-14 16:46 | NUR ---
UPDATE PT HAS BEEN RESTING IN BED WITH NO C/O, TAKES PO MEDS, FOOD, AND THIN LIQUIDS WITHOUT DIFFICULTY, NO S/SX ASPIRATION NOTED. PT DENIES NEEDS AT THIS TIME, VSS. ABD REMAINS DISTENDED, PT DENIES ABDOMINAL PAIN. BT PRESENT, NO BM THIS SHIFT.
--- NOTE | 2019-11-14 18:44 | NUR ---
UPDATE PT HAD 1 BM THIS EVENING, BEDBATH GIVEN AT THAT TIME, DRESSINGS TO LE'S CHANGED, ABX OINTMENT APPLIED X3 TO LE'S TODAY. RIGHT UPPER THIGH CONTINUES TO WEEP. PT ATE SOME DINNER, IS NOW RESTING WITH EYES CLOSED, VSS. ABD REMAINS DISTENDED AND FIRM, PT DENIES PAIN/NAUSEA, JAUNDICE REMAINS. PT WAS ALERT THIS MORNING UNTIL DIALYSIS, HAS BEEN LETHARGIC SINCE RETURNING AT LUNCH TIME, REMAINS ORIENTED. ONE VOID OF 75ML THIS SHIFT, ICE TO 24 HOUR URINE SPECIMEN REFRESHED. REPORT TO ONCOMING SHIFT.
--- NOTE | 2019-11-14 19:34 | NUR ---
ASSUMED CARE OF PT AT 1915. REPORT RECEIVED AT BEDSIDE. PT PRESENTS IN BED, HAS HIS HAT OVER HIS EYES. WHEN SPOKEN TO PT NODS HIS HEAD YES THAT HE IS AWAKE. PT IN NO APPARENT DISTRESS AT THIS TIME. HAS BEEN OUT OF ROOM. JUST HAVING RETURNED. GREETING DONE. WILL REVIEW CHART AND PLAN OF CARE FOR THIS PT.
[2019-11-14 22:21] LABS: Protein, Urine Quantitative 160.9 mg/dL (0.0-11.9)
--- NOTE | 2019-11-15 02:00 | NUR ---
PT HAS SLEPT SOME THIS EVENING. TOLERATING TURNS IN BED. LEGS REMAIN WEEPY. ESPECIALLY UPPER POSTERIOR/MEDIAL THIGHS. PT HAS HAD SEVERAL SMALL BM'S THIS NIGHT. HAS NOT VOIDED. HAS BEEN IN ROOM SLEEPING UP UNTIL NOW. SHE IS AWAKE AND VERY DOTING IN CARE OF PT. WILL CONTINUE TO MONITOR.
[2019-11-15 04:18] LABS: Hematocrit 36.2 % (37.0-53.0); Hemoglobin 11.6 g/dL (13.5-17.5)
[2019-11-15 04:33] LABS: Albumin, Blood 2.3 g/dL (3.4-5.0); Anion Gap 10 mmol/L (6-16); Blood Urea Nitrogen 44 mg/dL (8-24); CO2, Blood 28 mmol/L (21-32); Calcium, Blood 8.2 mg/dL (8.5-10.1); Chloride, Blood 96 mmol/L (98-108); Creatinine, Blood 5.53 mg/dL (0.60-1.20); Glomerular Filtration Rate 11 (60-); Glucose, Blood 117 mg/dL (70-99); Magnesium, Blood 2.3 mg/dL (1.6-2.4); Phosphorus, Blood 5.5 mg/dL (2.5-4.9); Potassium, Blood 3.7 mmol/L (3.5-5.5); Sodium, Blood 134 mmol/L (136-145)
--- NOTE | 2019-11-15 05:46 | NUR ---
PT HAS HAD SEVERAL DARK BM'S THIS SHIFT PER BEDPAN. PT'S HAS HELPED WITH SIMPLE ADL'S FOR PT. HAVE TURNED PT Q 2 HOURS WHICH PT TOLERATES WELL. HAVE ENCOURAGED PT TO ASSIST WITH HIS CARE MUCH HE CAN. PT REMAINS VERY PLEASANT, COOPERATIVE, AND GREATFUL WITH CARE. PT'S IS VERY ANIMATED, AND HAS PRESSURED SPEECH ABOUT HER AND PATIENT BEING POISONED, AND PERSECUTED OVER SOME LAND THEY HAVE IN [place]. WITH EACH ENTRY IN ROOM, SHE BEGINS THE CONVERSATION AGAIN. SHE IS VERY ADAMENT THAT SHE IS TAKING THE PATIENT OUT OF THE HOSPITAL ON SATURDAY NEEDLE LOOM OPERATOR AND DRIVING TO [facility] FOR AN APPOINTMENT. WILL CONTINUE TO MONITOR PT, AND WILL REPORT OFF TO ONCOMING RN.
--- NOTE | 2019-11-15 14:55 | NUR ---
CALL PLACED TO DR DOOLEY Per heart monitor, pt is having occasional PACs. Pt's states concern that pt's rhythm is irregular. Educated on PACs. Pt's states concern about pt's electrolytes. Educated that electrolytes are being checked daily. Pt's states belief that PACs were not occuring until pt received dialysis. Additionally states concern "I read articles from the goverment stating that PACs lead directly to cardiac arrest" and insists electorlytes are checked right now. Call placed to Dr Dooley to notify of pt's 's concerns. Orders given to check BMP at this time. Currently sinus rhtyhm with PACs, rate 77.
[2019-11-15 16:29] LABS: Bun/Creatinine Ratio 7.4 (12.0-20.0); Calcium, Blood 8.2 mg/dL (8.5-10.1); Creatinine, Blood 4.32 mg/dL (0.60-1.20); Potassium, Blood 3.7 mmol/L (3.5-5.5)
--- NOTE | 2019-11-15 20:39 | NUR ---
SUMMARY Pt medical floor status with telemetry. Pt had hemodialysis today. Has remained SR per monitor. VSS. No changes since initial shift assessment. Bedside report given to Emmett HERNANDEZ.
[2019-11-16 04:49] LABS: Hemoglobin 11.6 g/dL (13.5-17.5)
[2019-11-16 05:06] LABS: Albumin, Blood 2.1 g/dL (3.4-5.0); Anion Gap 7 mmol/L (6-16); Blood Urea Nitrogen 39 mg/dL (8-24); Bun/Creatinine Ratio 7.4 (12.0-20.0); CO2, Blood 29 mmol/L (21-32); Calcium, Blood 8.2 mg/dL (8.5-10.1); Chloride, Blood 98 mmol/L (98-108); Creatinine, Blood 5.26 mg/dL (0.60-1.20); Glomerular Filtration Rate 12 (60-); Glucose, Blood 128 mg/dL (70-99); Magnesium, Blood 2.3 mg/dL (1.6-2.4); Phosphorus, Blood 4.9 mg/dL (2.5-4.9); Potassium, Blood 3.9 mmol/L (3.5-5.5); Sodium, Blood 134 mmol/L (136-145)
--- NOTE | 2019-11-16 07:10 | NUR ---
BEDSIDE REPORT WITH NOC RN. ASSUMED PT CARE.
--- NOTE | 2019-11-16 07:51 | NUR ---
BREAKFAST TRAY PROVIDED TO PT. PT BOOSTED IN BED WITH ASSISTANCE OF KIMBERLEE.
--- NOTE | 2019-11-16 08:00 | NUR ---
PT PLACED ON BEDPAN FOR BM.
--- NOTE | 2019-11-16 08:20 | NUR ---
PT CLEANED, SM BM NOTED. VILLALBA PAD REPLACED.
--- NOTE | 2019-11-16 08:58 | NUR ---
PT MEDICATED PER EMAR. TO DIALYSIS.
--- NOTE | 2019-11-16 10:01 | NUR ---
ROOM ASSIGNEMENT RECEIVED. 355.
--- NOTE | 2019-11-16 10:07 | NUR ---
MARGE SOSA TO CHANGE DRESSING TO DIALYSIS CATH TODAY.
--- NOTE | 2019-11-16 10:38 | NUR ---
PT BELONGINGS GATHERED AND SENT TO 355. ALL MEDS SENT IN GREEN BAG WITH CHART TO NEW ROOM.
--- NOTE | 2019-11-16 10:55 | NUR ---
report to med floor rn.
--- NOTE | 2019-11-16 11:55 | NUR ---
PT ARRIVED TO THE UNIT WITH HIS . ORIENTATED TO THE ROOM. NO NEEDS AT THIS TIME. PROVIDED WARM BLANKET AND TURNED UP THERMOSTAT. PT RAILE UP PER WIFES REQUEST. BED ALARM ON
[2019-11-16 15:07] LABS: ANA DIRECT Positive (Negative); ANTI-CENTROMERE B ANTIBODIES <0.2 AI (0.0-0.9); ANTI-DNA (DS) AB QN 7 IU/mL (0-9); ANTI-JO-1 0.4 AI (0.0-0.9); ANTICHROMATIN ANTIBODIES 0.2 AI (0.0-0.9); ANTIMYELOPEROXIDASE (MPO) ABS 24.6 U/mL (0.0-9.0); ANTIPROTEINASE 3 (PR-3) ABS 17.1 U/mL (0.0-3.5); ANTIRIBOSOMAL P ANTIBODIES <0.2 AI (0.0-0.9); ANTISCLERODERMA-70 ANTIBODIES <0.2 AI (0.0-0.9); ATYPICAL PANCA <1:20 titer (Neg:<1:20); CYTOPLASMIC (C-ANCA) <1:20 titer (Neg:<1:20); PERINUCLEAR (P-ANCA) <1:20 titer (Neg:<1:20); RNP ANTIBODIES 2.3 AI (0.0-0.9); SJOGREN'S ANTI-SS-A <0.2 AI (0.0-0.9); SJOGREN'S ANTI-SS-B 1.6 AI (0.0-0.9); SMITH ANTIBODIES 0.4 AI (0.0-0.9); SMITH/RNP ANTIBODIES <0.2 AI (0.0-0.9)
--- NOTE | 2019-11-16 20:05 | NUR ---
BARRIE CALLED, ARRIVED TO THE ROOM, KIMBERLEE JUST GOT TO THE ROOM THE STARTED TO HAVE A ASTHMA ATTACK AND COULD NOT CATCH HER BREATH. SHE GOT HER INHALER AND WAS USING IT WHEN I ARRIVED, BUT WAS TRYING TO GET HER BREATH. TALKED HER THROUGH IT AND GOT HER SETTLED DOWN AND BREATHING AGAIN. THIS CAUSED BARRIE TO STRESS OUT. CALMED HIM DOWN JUST DR. HAMPTON ARRIVED TO ASSESS THE PATIENT. BILATERAL LEGS HAD DRESSINGS ON EACH CALF BOTH INTACT. FEET EDEMA NOTED, RED AND WARM TO THE TOUCH. ABDOMIN IS DISTENEDED AND SOFT AT THIS TIME. PERMA CATH DRESSING INTACT. POWER GLIDE IN LEFT UPPER ARM SL. DR. HAMPTON SAID HE IS DOING A LITTLE BETTER TODAY. DR. HAMPTON HAD NO FURTHER ORDERS TO GIVE. THEREFORE LEFT HIM TALKING TO THE PATIENT AND . WILL CHECK BACK WITH HIM.
--- NOTE | 2019-11-16 23:13 | NUR ---
BARRIE CALLED REPORTING PAIN. WAS TALKING TO HIM ABOUT HIS OPTIONS. CHARGE NURSE SO HAPPEN TO WALK BY AND LOOKED IN THE ROOM. WAS INSISTING ON KNOWING WHO HE WAS AND IF HE WORKED HERE. SHE REPORTED THAT THEY HAVE BEEN GETTING STOCKED HERE. THERE A NURSE DOWN IN ICU WHO WOULD NOT LEAVE THEM ALONE DISPITE BEING TOLD TO. SHE EVEN THOUGHT THE DOCUMENTATION SPEC TODAY WAS OUT TO GET THEM STOCKING THEM AND INSISTING OR WANTING TO GET IN THE ROOM ALL THE TIME, JUST BECAUSE SHE WAS SITTING AT THE NURSE STATION CHARTING. INFORMED CHARGE NURSE KAY OF THE SITUATION AND HER PARNOIA. SHE ALSO REQUESTED HER BE CONFIDENTAL WHICH ALSO INFORMED CHARGE NURSE. AFTER INFORMING THE PATIENTS WHO IT WAS SHE FELT BETTER.
[2019-11-17 05:17] LABS: EOSINOPHILS ABSOLUTE AUTO 0.93 K/mm3 (0.00-0.68); EOSINOPHILS PERCENT AUTO 7 % (0-6); Hematocrit 38.2 % (37.0-53.0); Hemoglobin 11.9 g/dL (13.5-17.5); IMMATURE GRAN ABSOLUTE AUTO 0.24 K/mm3 (0.00-0.10); IMMATURE GRAN PERCENT AUTO 2 % (0-1); LYMPHOCYTES ABSOLUTE AUTO 2.29 K/mm3 (0.84-5.20); LYMPHOCYTES PERCENT AUTO 17 % (21-46); MONOCYTES ABSOLUTE AUTO 2.23 K/mm3 (0.16-1.47); MONOCYTES PERCENT AUTO 17 % (4-13); Mean Corpuscular HGB 29.8 pg (26.0-34.0); Mean Corpuscular HGB Conc 31.2 g/dL (31.5-36.5); Mean Platelet Volume 11.3 fL (9.1-12.4); NEUTROPHILS ABSOLUTE AUTO 7.48 K/mm3 (1.96-9.15); NEUTROPHILS PERCENT AUTO 57 % (41-73); NRBC ABSOLUTE 0.02 K/mm3 (0.00-0.02); NRBC Auto 0.2 /100 WBC (0.0-0.2); Platelet Count 85 K/mm3 (150-400); RDW Coefficient Variation 19.1 % (11.7-14.2); RDW Standard Deviation 64.1 fL (35.1-46.3); Red Blood Cell Count 3.99 M/mm3 (4.30-5.90); White Blood Cell Count 13.18 K/mm3 (4.00-11.30)
[2019-11-17 05:33] LABS: Albumin, Blood 2.2 g/dL (3.4-5.0); Albumin/Globulin Ratio 0.6 (0.8-1.8); Bilirubin, Direct 5.5 mg/dL (0.0-0.3); Bilirubin, Indirect 2.9 mg/dL (0.1-0.7); Bilirubin, Total 8.4 mg/dL (0.1-1.0); Bun/Creatinine Ratio 6.9 (12.0-20.0); Calcium, Blood 8.4 mg/dL (8.5-10.1); Creatinine, Blood 5.47 mg/dL (0.60-1.20); Magnesium, Blood 2.2 mg/dL (1.6-2.4); Phosphorus, Blood 4.6 mg/dL (2.5-4.9); Potassium, Blood 4.1 mmol/L (3.5-5.5); Total Protein, Blood 6.2 g/dL (6.4-8.2)
[2019-11-17 05:38] LABS: BASOPHILS ABSOLUTE AUTO 0.01 K/mm3 (0.00-0.23); BASOPHILS PERCENT AUTO 0 % (0-2); Mean Corpuscular Volume 96 fL (80-100)
--- NOTE | 2019-11-17 05:46 | NUR ---
SHIFT SUMMARY: BARRIE HAS BEEN COOPERATIVE ALL NIGHT. HAS BEEN IN THE ROOM ASSISTING IN CARE. SHE IS VERY PARTICULAR ON HOW THE CARE MUST BE GIVEN. SUCH IF ANYONE SITS DOWN IN THE CHAIRS THEY HAVE TO BE CLEANED BEFORE ANY OF BARRIE'S THINGS CAN TOUGH IT, INCLUDING A PILLOW. SHE IS ALWAYS PARNOID SOMEONE IS GOING TO COME IN THE ROOM AND STOCK THEM. THAT IS JUST SOME OF IT. BARRIE HAS BEEN DOING WELL ALL NIGHT, UP AND DOWN TO THE BATHROOM. SMALL VOIDS HERE AND THERE. BM LAST NIGHT. WEIGHT THIS AM IS 96.27KG. DRESSINGS HAVE REMAINED INTACT AND CLEAN. EDEMA IS DECREASING IN LEGS AND ABDOMIN. ACITIES STILL NOTED. PAIN HAS BEEN CONTROLLED WITH NORCO. DR. HAMPTON STOPPED BY TO SEE THE PATIENT, NO NEW ORDERS RECEIVED. CALL LIGHT HAS REMAINED IN REACH AND USED APPROPRIATLY.
--- NOTE | 2019-11-17 17:36 | NUR ---
SUMMARY PT RESTING QUIETLY IN BED, PT WAKES EASILY, SPOUSE REMAINS AT THE BEDSIDE T/O THE DAY, PT HAD DIALYSIS TODAY, ELBA WELL, DRESSINGS CHANGED TO BILAT LEGS, ONLY OPEN AREA SEEN WAS ON THE R CALF, THERE IS A NICKEL SIZED ROUND RED AREA, FOAM DRESSING APPLIED, FOAM DRESSING APPLIED TO OTHER AREAS THE SPOUSE REQUESTED, NO OTHER OPEN AREAS NOTED, PT IS A 1 PERSON ASSIST WITH THE WALKER UP TO THE BATHROOM, PT HAS BEEN UP TWICE TODAY, PLEASANT AND COOPERATIVE WITH CARE, NO ACUTE CHANGES, WILL CONT TO MONITOR
--- NOTE | 2019-11-17 19:30 | NUR ---
BARRIE IS IN THE ROOM JUST RETURNED. THEY REPORT HE HAD A BETTER DAY TODAY. WAS ABLE TO WALK TO THE BATHROOM WITH 1 ASSIST. STATES HAS NOT NEEDED PAIN MEDS ALL DAY BUT WILL LIKE SOME FOR BED. EDEMA HAS DECREASED IN THE LEGS, DRESSINGS CHANGED TODAY, ALL STILL INTAKE. HE STILL +3 PITTING IN THE LEGS. ABDOMIN IS DISTENDED AND A LITTLE FIRMER THEN LAST NIGHT. STILL JAUDICE. DENIES ANY NEEDS AT THIS TIME, WILL CONTINUE TO MONITOR.
[2019-11-18 05:05] LABS: Hematocrit 36.7 % (37.0-53.0); Hemoglobin 11.6 g/dL (13.5-17.5)
[2019-11-18 05:31] LABS: Anion Gap 9 mmol/L (6-16); Blood Urea Nitrogen 36 mg/dL (8-24); Bun/Creatinine Ratio 6.6 (12.0-20.0); CO2, Blood 28 mmol/L (21-32); Calcium, Blood 8.4 mg/dL (8.5-10.1); Chloride, Blood 94 mmol/L (98-108); Creatinine, Blood 5.45 mg/dL (0.60-1.20); Glomerular Filtration Rate 11 (60-); Glucose, Blood 118 mg/dL (70-99); Magnesium, Blood 2.2 mg/dL (1.6-2.4); Phosphorus, Blood 5.2 mg/dL (2.5-4.9); Potassium, Blood 3.7 mmol/L (3.5-5.5); Sodium, Blood 131 mmol/L (136-145)
--- NOTE | 2019-11-18 05:44 | NUR ---
SHIFT SUMMARY: BARRIE APPEARS TO HAVE INCREASE IN SWELLING IN HIS LEGS FROM PREVIOUS MORNING. DRESSINGS ARE STILL INTACT, REMOVED THE INNER RIGHT THIGH DRESSING WEEPING HAS STOPPED. ABDOMEN IS STILL DISTENDED AND A LITTLE FIRMER THEN YESTERDAY. MILD NAUSEA, COMPAZINE GIVEN. PAIN MED GIVEN X1 FOR BEDTIME. PERMA CATH DRESSING STILL INTACT. LABS DRAWN VIA PORT WITH NO PROBLEMS. SLEPT OFF AND ON THROUGHOUT THE NIGHT. NO ACUTE CHANGES, WILL REPORT TO DAY SHIFT.
[2019-11-18 07:26] LABS: International Normalized Ratio 1.59; Prothrombin Time Results 16.6 Sec (9.7-11.5)
[2019-11-18 07:28] LABS: Albumin/Globulin Ratio 0.5 (0.8-1.8); Bilirubin, Direct 5.8 mg/dL (0.0-0.3); Bilirubin, Total 8.8 mg/dL (0.1-1.0); Globulin, Blood 3.9 g/dL (2.2-4.0); Total Protein, Blood 5.9 g/dL (6.4-8.2)
[2019-11-18 13:08] LABS: M-SPIKE, % Not Observed % (Not Observed); PROTEIN,TOTAL,URINE 142.5 mg/dL (Not Estab.)
--- NOTE | 2019-11-18 18:02 | NUR ---
SUMMARY PT SITTING UP IN BED EATING DINNER, ASSISTED BY HIS SPOUSE, PT DID NOT GET DIALYSIS TODAY, PT HAS BEEN UP IN THE CHAIR SEVERAL TIMES TODAY, WORKED WITH PT/OT TODAY, PLEASANT AND COOPERATIVE, SPOUSE IS VERY PARTICULAR ABOUT THE PT'S CARE, NO COMPLAINTS, WILL CONT TO MONITOR
--- NOTE | 2019-11-18 19:50 | NUR ---
CAME OUT OF THE ROOM, REPORTING THAT BARRIE IS HURTING AND NEEDS SOMETHING FOR PAIN AND NAUSEA. SHE HAD HIM ALL SNUGGLED UNDER ALOT OF BLANKETS, REPORTING HE IS COLD AND HURTING. ABDOMEN IS SLIGHTLY MORE DISTENDED TONIGHT AND FIRM. BLE HAVE INCREASE IN EDEMA WITH 3+ PITTING UP TO THE HIP AREAS. DRESSINGS ARE INTACT, NO WEEPING NOTED. MILD NAUSEA NOTED. NO DIALYSIS TODAY. ADMISTERED COMPAZINE AND MORPHINE. DISCUSSED FLUID RESTRICTION AGAIN. NOT SURE IF IS FOLLOWING IT, SHE MAY BE GIVING HIM MORE WATER THEN HE IS SUPPOSE TO HAVE AND TELLING US SHE ISN'T. WILL CONTINUE TO MONITOR, CALL LIGHT IN REACH.
[2019-11-19 04:54] LABS: BASOPHILS ABSOLUTE AUTO 0.06 K/mm3 (0.00-0.23); BASOPHILS PERCENT AUTO 1 % (0-2); EOSINOPHILS ABSOLUTE AUTO 0.63 K/mm3 (0.00-0.68); EOSINOPHILS PERCENT AUTO 7 % (0-6); Hematocrit 37.3 % (37.0-53.0); Hemoglobin 11.9 g/dL (13.5-17.5); IMMATURE GRAN ABSOLUTE AUTO 0.17 K/mm3 (0.00-0.10); IMMATURE GRAN PERCENT AUTO 2 % (0-1); LYMPHOCYTES ABSOLUTE AUTO 1.56 K/mm3 (0.84-5.20); LYMPHOCYTES PERCENT AUTO 16 % (21-46); MONOCYTES PERCENT AUTO 17 % (4-13); Mean Corpuscular HGB 30.6 pg (26.0-34.0); Mean Corpuscular HGB Conc 31.9 g/dL (31.5-36.5); Mean Corpuscular Volume 96 fL (80-100); Mean Platelet Volume 10.5 fL (9.1-12.4); NEUTROPHILS ABSOLUTE AUTO 5.66 K/mm3 (1.96-9.15); NEUTROPHILS PERCENT AUTO 59 % (41-73); Platelet Count 82 K/mm3 (150-400); RDW Coefficient Variation 18.8 % (11.7-14.2); RDW Standard Deviation 64.3 fL (35.1-46.3); Red Blood Cell Count 3.89 M/mm3 (4.30-5.90); White Blood Cell Count 9.68 K/mm3 (4.00-11.30)
[2019-11-19 05:06] LABS: International Normalized Ratio 1.54; Prothrombin Time Results 16.1 Sec (9.7-11.5)
[2019-11-19 05:07] LABS: Magnesium, Blood 2.3 mg/dL (1.6-2.4)
[2019-11-19 05:08] LABS: Albumin/Globulin Ratio 0.5 (0.8-1.8); Bilirubin, Total 8.6 mg/dL (0.1-1.0); Bun/Creatinine Ratio 7.4 (12.0-20.0); Calcium, Blood 8.6 mg/dL (8.5-10.1); Creatinine, Blood 6.51 mg/dL (0.60-1.20); Globulin, Blood 4.3 g/dL (2.2-4.0); Phosphorus, Blood 5.8 mg/dL (2.5-4.9); Potassium, Blood 4.1 mmol/L (3.5-5.5); Total Protein, Blood 6.3 g/dL (6.4-8.2)
--- NOTE | 2019-11-19 05:12 | NUR ---
SHIFT SUMMARY: BARRIE HAS REMAINED STABLE. VS WNL. EDEMA STILL PRESENT FROM FEET TO MID CHEST, GREATER ON THE LEFT SIDE THEN RIGHT. EDEMA IS +3 OR GREATER IN SOME AREAS. LUNG SOUNDS ARE DIMINISHED. PAIN HAS BEEN CONTROLLED WITH CURRENT TX. BEEN ABLE TO GET UP WITH 1 ASSIST WITH WALKER TO THE BATHROOM. VOIDS SMALL AMOUNTS AT A TIME. DRESSINGS REMAINED IN PLACE. DAY SHIFT DID NOT RECORD FLUID PER HE HAD 720 ON DAY SHIFT. THEREFORE ONLY HAS HAD ONE GLASS TONIGHT. BUT THERE IS QUESTION ON IF THE IS PROVIDING MORE AND NOT LETTING US KNOW. IS STILL VERY PARTICULAR ON THINGS, AND GETS UPSET IF THINGS ARE NOT BY HER WAY. HE SLEPT OFF AND ON THROUGHOUT THE NIGHT. NO ACUTE CHANGES OCCURRED. WILL REPORT TO DAY SHIFT.
--- NOTE | 2019-11-19 15:28 | NUR ---
Supportive visit with . She has picked anew RV to purchase and is planning on proceeding with plan to go to higher level facility. Reviewed support from dialysis and if she wants to stay and get outpatient care. She stated the plan was still to go. Advised her to speak with phsycians and neprology and to proceed. Or you may miss opportunity. Supporting her with visits and monitoring so she can leave briefly to mixing picker tender meds and get some self care. Review of needs with patient advocate and care managers. advised pt will assist with travel map with nearby hospitals that have acute dialysis and camping sites. Will review one more time with the risks of her plan a blunt discussion of risks of sudden and being alone on the road advised her today of [place]. the patient has expressed wanting to continue with plan and appreciates his .
--- NOTE | 2019-11-19 15:30 | NUR ---
PT VITALS LOW 88/56. PT DID HAVE DIALYSIS TODAY AND SEEMS TIRED. SPOKE TO PALLIATIVE CARE RN. LOW PRESSURE NOT ABNORMAL FOR DIALYSIS PT. WILL RECHECK VITALS IN ONE HOUR. SPOKE TO DR CORONADO HE IS AWARE AND RECOMENDS CALLING DR STOVALL WITH THE LOW PRESSURE. WILL CALL AFTER REPEAT VITALS.
--- NOTE | 2019-11-19 16:22 | NUR ---
CALLED DR STOVALL- PT BP CONTINUES TO BE LOW. NEW ORDER RECIEVED FOR MIDODRENE 5 MG PO TID HOLD FOR SBP GREATER THAN 120.
--- NOTE | 2019-11-19 18:23 | NUR ---
SHIFT SUMMARY- PT BLOOD PRESSURE WAS 116 ON RECHECK NEW MED APPEARS TO BE HELPING. PT APPEARS TO HAVE MORE ENERGY, GOT OUT OF BED TO THE CHAIR FOR DINNER, MORE ALERT AT THIS TIME. PT SPOUSE IS AT THE BEDSIDE AND IS VERY INVOLVED WITH THE PT CARE. PG TO THE LEFT UPPER ARM IS PATENT AND SL AT THIS TIME. DIALYSIS CATH TO [facility] CHEST HAS A DRESSING THAT IS C/D/I.
--- NOTE | 2019-11-19 19:49 | NUR ---
PT SPOUS PROVIDING HIM WITH EXTRA FLUIDS T/O THE DAY. SHE IS AWARE OF THE FLUID RESTRICTION.
--- NOTE | 2019-11-20 00:27 | NUR ---
11/20/19 0015 FOUR H CLUB AGENT ASKED IF SHE COULD TURN PT AND DECLINED TURNING AT THIS TIME. HAD DECLINED MEDS EARLIER. SEE MAR COMMENTS.
--- NOTE | 2019-11-20 01:49 | NUR ---
11/20/19 0145 PT AWAKE NOW AND REQUESTING PAIN MED FOR "LEGS". SAT UP AT BEDSIDE AND TOOK MEDS WITH APPLESAUCE AND WATER. REQUESTED OINTMENT APPLIED TO LEGS HE "IS AWAKE NOW." SEE MAR FOR MEDS GIVEN.
--- NOTE | 2019-11-20 03:39 | NUR ---
11/20/19 0330 SLEEPING AFTER IV PAIN MED GIVEN. PT DID AWAKEN TO ASK FOR DOOR TO BE CLOSED. HE STATES PAIN "IS BETTER NOW". AWAKENED AND WAS AWARE OF PAIN RELIEF. DOOR CLOSED.
--- NOTE | 2019-11-20 06:14 | NUR ---
11/20/19 0615 AND PT FRUSTRATED ABOUT LACK OF INFORMATION FROM DOCTORS REGARDING PT'S PLAN OF ACTION FOR FUTURE CARE. RN ENCOURAGED THEM TO SPEAK WITH MD AND ADMINISTRATION THIS AM ABOUT THEIR CONCERNS. INFORMED SENIOR CREDIT OFFICER,JOSS, TO HAVE DAY SHIFT CHARGES SPEAK WITH BOTH OF THEM THIS AM. SBP AT 98. WILL CONTINUE TO MONITOR VITALS. DOES NOT FOLLOW FLUID RESTRICTIONS AND GIVES HIM WATER PRN EVEN WHEN REMINDED ABOUT FLUID RESTRICTIONS ORDERS.
[2019-11-20 06:22] LABS: Hematocrit 36.8 % (37.0-53.0); Hemoglobin 11.7 g/dL (13.5-17.5)
[2019-11-20 06:36] LABS: Anion Gap 10 mmol/L (6-16); Blood Urea Nitrogen 41 mg/dL (8-24); Bun/Creatinine Ratio 6.9 (12.0-20.0); CO2, Blood 29 mmol/L (21-32); Calcium, Blood 8.6 mg/dL (8.5-10.1); Chloride, Blood 91 mmol/L (98-108); Creatinine, Blood 5.95 mg/dL (0.60-1.20); Glomerular Filtration Rate 10 (60-); Glucose, Blood 98 mg/dL (70-99); Magnesium, Blood 2.3 mg/dL (1.6-2.4); Phosphorus, Blood 5.5 mg/dL (2.5-4.9); Sodium, Blood 130 mmol/L (136-145)
--- NOTE | 2019-11-20 07:36 | NUR ---
11/20/[address] STOVALL SPOKE WITH PT AND AND INFORMED RN TO HAVE FARM OPERATIONS TECHNICAL DIRECTOR AND PRODUCTION SUPERVISOR COORDINATE OUTPATIENT DIALYSIS AND NEEDS.
--- NOTE | 2019-11-20 11:35 | NUR ---
CALLED DR GAGNON CONSULT- PT SPOUSE STATES HE HAS NOT YET SEENT THE PT CONSULT REQUEST FOR 11/06 CALLED 11/20/[address] RUBIN IS AWARE AND ASKED RN TO CALL THE REQUEST AN AGAIN TODAY.
--- NOTE | 2019-11-20 17:23 | NUR ---
extensive conversation today about plan of care. getting more distraught. Pt getting mor anasarca and more somulence. case confrence with fuentes garcia about plan of care. pt expressed they will be homeless if they cant get the new rv. helping with travel plan and supportive care.
--- NOTE | 2019-11-20 18:47 | NUR ---
PT CALLED FOR PAIN MEDICATION. SPOKE TO THE PT SPOUSE ABOUT THE LOW BLOOD PRESSURE. PT HAS ALREADY RECIEVED MIDODRENE TO RAISE THE BP. PT AGREED ORAL PAIN MEDICINE WAS OK.
--- NOTE | 2019-11-20 19:19 | NUR ---
SHIFT SUMMARY- PT SPOUSE IS AT THE BEDSIDE. SHE IS VERY PARTICULAR ABOUT THE PT CARE. SPOUSE HAS BEEN TOILETING THE PT T/O THE SHIFT. PT AMBULATED IN THE HALLS WITH PHYSICAL THERAPY TODAY. PT SPOUSE STATED THAT SHE HAS NOT BEEN FEELING WELL AND IS HAVING TROUBLE WITH SOME LOOSE STOOL. SHE CAME OUT AND GOT CAVI WIPES SO SHE COULD CLEAN THE TOILET. SPOUSE IS CONCERNED THAT THE PT WILL"CATCH WHAT SHE HAS." SPOUSE SEEMS TO BE STUCK IN THE FIRST STAGES OF GRIEF, DENIAL AND ANGER; HOWEVER SHE DID SEEM TO BE A LITTLE MORE SAD TODAY (LIKE SHE MAY BE CONSIDERING THAT THE PT IS TOO SICK). PT HAS HEP C, LIVER CANCER, CKD NOW ON HEMODIALYSIS, CELLULITIS OF THE BLE AND NOW HAVING HYPOTENSION WELL PAIN. PT STILL REMAINS A FULL CODE AT THIS TIME. PALLIATIVE CARE IS ON THE CASE (SEE PALLIATIVE CARE NOTES FOR DETAILS) SPOUSE IS PLANNING TO TAKE THE [place] A LIVER TRANSPLANT CENTER BY . PT WAS DEEMED TO NOT BE A TRANSPLANT CANDIDATE BY [facility] ACCORDING TO THE PT SPOUSE. PT SPOUSE IS GRIEVING, AND IS GRASPING AT EVERY STRAW SHE CAN TO SAVE HER LOVED ONE. STAFF SHOULD BE CLEAR WHEN SPEAKING WITH HER ( FALSE HOPE IS EASY TO GIVE TO THOSE WHO ARE LOOKING FOR IT). 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 PATIENT ADVOCATE HAS BEEN INVOLVED WELL CARE MANAGEMENT. CONSULT WAS CALLED TO DR GAGNON TODAY. UNCLEAR IF PREVIOUS CONSULT WAS CALLED. PT DID NOT HAVE DIALYSIS TODAY. PT SPOUSE IS STILL NOT ADHEREING TO THE FLUID RESTRICTION. SHE WAS WRITING DOWN THE AMOUNT OF FLUID SHE WAS GIVING HIM YESTERDAY, SHE DID NOT AT ALL TODAY; POSSIBLY BECAUSE THE PT WAS OVER 1000ML FLUID RESTRICTION AT SHIFT CHANGE LAST NIGHT AND STAFF WERE ENCOURAGING ADHEREANCE TO THE RESTRICTION. SPOUSE HAS CALMED T/O THE DAY AND IS MORE RELAXED THIS EVENING WITH STAFF CARE. SPOUSE DOES NOT WANT ANYTHING PLACED IN THE COMMUNAL HAND WASHING SINK AND THEN USED ON THE PT (WIPES ETC) THERE IS A TEJEDA BIN IN THE ROOM FOR THIS. ANYTHING THAT TOUCHES THE PT LEGS IS CONTAMINATED AND SHOULD NOT BE USED AGAIN PER PT SPOUSE. (THIS WILL HELP TO KEEP HER CALM AND PLEASENT). PT WOULD LIKE A SHOWER TODAY HOWEVER THERE WAS NOT MUCH TIME THAT THE PT WAS ALERT THAT HE WAS NOT BUSY WITH DOCTORS, SPECIALISTS, THERAPIES, DISCHARGE PLANNING, PALLIATIVE CARE VISITS, PT ADVOCATE VISITS ETC. PASSED ON TO MEDICAL VAN DRIVER THAT IF MEDIPORT IS SECURELY COVERED AND PG IS SECURELY COVERED THE PT COULD TAKE A SHOWER IF THE WOULD BE MORE HAPPY DOING THE BATHING THEN STAFF COULD GET HIM IN AND OUT AND SHE COULD DO THE WASHING (SPOUSE DOES NOT WANT STAFF DOING PERSONAL CARE FOR THE PT).
[2019-11-21 04:53] LABS: Hematocrit 35.2 % (37.0-53.0); Hemoglobin 11.3 g/dL (13.5-17.5)
[2019-11-21 05:05] LABS: Anion Gap 11 mmol/L (6-16); Blood Urea Nitrogen 50 mg/dL (8-24); CO2, Blood 26 mmol/L (21-32); Calcium, Blood 8.6 mg/dL (8.5-10.1); Chloride, Blood 91 mmol/L (98-108); Creatinine, Blood 7.17 mg/dL (0.60-1.20); Glomerular Filtration Rate 8 (60-); Glucose, Blood 89 mg/dL (70-99); Magnesium, Blood 2.3 mg/dL (1.6-2.4); Potassium, Blood 4.1 mmol/L (3.5-5.5); Sodium, Blood 128 mmol/L (136-145)
--- NOTE | 2019-11-21 05:37 | NUR ---
SHIFT SUMMARY: VSS. AFEB. A/OX3. SLOW TO RESPOND AND SOME DIFFICULTY FINDING WORDS. AT BEDSIDE ASSISTING PT WITH TOILETING. EDEMA CONT FROM TOES TO PELVIS. ABD LARGE, ROUND, DISTENDED. JAUNDICED SKIN AND CONJUNCTIVA. REPORTS BACK PAIN X1, RESPONDED WELL TO PRN ANALGESIC. VOIDING VERY SMALL AMTS OF DARK YELLOW URINE. PER PT , PT HAS HAD 4 TYPE 6 BMS TONIGHT. HAS SLEPT VERY MINIMALLY DUE TO NOISE FROM NEIGHBORING PT. PERMACATH ON R CHEST APPEARS BRUISED AND INSERTION SITE IS SLIGHTLY TENDER. NO ERYTHEMA OR BLEEDING FROM THE SITE. PT RESTING COMFORTABLY IN BED AT THIS TIME. BED LOW, CALL BUTTON IN REACH. WILL CONT TO MONITOR.
--- NOTE | 2019-11-21 15:56 | NUR ---
POWERGLIDE FOUND POWERGLIDE TO BE PULLED OUT, SITE CLEAN AND DRY, SPOUSE STATES SHE THINKS IT HAPPENED IN DIALYSIS, NO SIGN OF POWERGLIDE OR DRESSING ANYWHERE IN THE ROOM
--- NOTE | 2019-11-21 17:17 | NUR ---
SUMMARY PT RESTING QUIETLY IN BED, SPOUSE REMAINS AT THE BEDSIDE, SPOUSE CONVINCED THAT A STAFF MEMBER PULLED OUT THE POWERGLIDE DURING TRANSPORT TO DIALYSIS, SPOKE WITH DIALYSIS NURSE, NO POWERGLIDE PRESENT IN THEIR UNIT, PT GOT DIALYSIS TODAY, EL[facility] FAIR, POOR APPETITE, SPOUSE MANAGES MUCH OF HIS CARE IN THE ROOM, BP REMAINS ON THE LOW SIDE, WILL CONT TO MONITOR
--- NOTE | 2019-11-22 04:14 | NUR ---
SHIFT SUMMARY: VSS. AFEB. REPORTS BACK/NECK PAIN X 1 TONIGHT. IMPROVED WITH PRN ANALGESIC. HAS REMAINED AWAKE FOR MOST OF THE NIGHT. SPOUSE AT BEDSIDE ALL NIGHT AND ASSISTING PT WITH TOILETING. CONT W ANASARCA. 4+ PITTING EDEMA TO BLE, ABD FIRM, NON-TENDER, DISTENDED. FINE INSP CRACKLES AUSCULTATED BILATERALLY. PT DENIES COUGH. RESPS REG, NON-LABORED. HOB REMAINS >30 DEGREES PER PT PREFERENCE. PT'S VOICE IS QUIET. SLOW TO RESPOND AND CONT W/ DIFFICULTY FINDING WORDS. BILATERAL SHINS CONT. WITH REDNESS, NOT HOT TO TOUCH. BED LOW, CALL BUTTON IN REACH.
[2019-11-22 04:54] LABS: BASOPHILS ABSOLUTE AUTO 0.08 K/mm3 (0.00-0.23); BASOPHILS PERCENT AUTO 1 % (0-2); EOSINOPHILS ABSOLUTE AUTO 0.48 K/mm3 (0.00-0.68); EOSINOPHILS PERCENT AUTO 5 % (0-6); Hematocrit 38.2 % (37.0-53.0); Hemoglobin 12.2 g/dL (13.5-17.5); IMMATURE GRAN ABSOLUTE AUTO 0.12 K/mm3 (0.00-0.10); IMMATURE GRAN PERCENT AUTO 1 % (0-1); LYMPHOCYTES ABSOLUTE AUTO 1.16 K/mm3 (0.84-5.20); LYMPHOCYTES PERCENT AUTO 12 % (21-46); MONOCYTES ABSOLUTE AUTO 1.23 K/mm3 (0.16-1.47); MONOCYTES PERCENT AUTO 13 % (4-13); Mean Corpuscular HGB 30.5 pg (26.0-34.0); Mean Corpuscular HGB Conc 31.9 g/dL (31.5-36.5); Mean Corpuscular Volume 96 fL (80-100); NEUTROPHILS ABSOLUTE AUTO 6.69 K/mm3 (1.96-9.15); NEUTROPHILS PERCENT AUTO 69 % (41-73); NRBC ABSOLUTE 0.02 K/mm3 (0.00-0.02); NRBC Auto 0.2 /100 WBC (0.0-0.2); Platelet Count 77 K/mm3 (150-400); RDW Coefficient Variation 19.5 % (11.7-14.2); RDW Standard Deviation 65.8 fL (35.1-46.3); White Blood Cell Count 9.76 K/mm3 (4.00-11.30)
[2019-11-22 05:09] LABS: Albumin, Blood 1.9 g/dL (3.4-5.0); Anion Gap 10 mmol/L (6-16); Blood Urea Nitrogen 38 mg/dL (8-24); Bun/Creatinine Ratio 6.5 (12.0-20.0); CO2, Blood 28 mmol/L (21-32); Calcium, Blood 8.9 mg/dL (8.5-10.1); Chloride, Blood 95 mmol/L (98-108); Creatinine, Blood 5.84 mg/dL (0.60-1.20); Glomerular Filtration Rate 10 (60-); Glucose, Blood 90 mg/dL (70-99); Magnesium, Blood 2.4 mg/dL (1.6-2.4); Phosphorus, Blood 5.4 mg/dL (2.5-4.9); Potassium, Blood 3.9 mmol/L (3.5-5.5); Sodium, Blood 133 mmol/L (136-145)
--- NOTE | 2019-11-22 05:25 | NUR ---
PT WAS DISCOVERED BY SPOUSE TO HAVE BLOOD ON HIS FINGERS. HE HAD REMOVED TEGADERM FROM OFF OF PERMACATH AND WAS SCRATCHING AT THE INSERTION SITE. STATES HE HAD BEEN SLEEPING AND WAS NOT AWARE OF WHAT HE WAS DOING. SITE CLEANSED WITH CHLORAPREP AND COVERED WITH TEGADERM. PT ADVISED OF THE NOT TOUCHING OR PULLING AT PERMACATH. PT VERBALIZED UNDERSTANDING.
--- NOTE | 2019-11-22 17:36 | NUR ---
SUMMARY PT RESTING QUIETLY IN BED, SPOUSE REMAINS AT THE BEDSIDE T/O THE DAY, PT HAD DIALYSIS TODAY, [facility], PT HAS BEEN UP IN THE CHAIR SEVERAL TIMES TODAY, SPOUSE ASSISTS WITH MOST OF HIS CARE, PT HAS BEEN UP TO THE BATHROOM WITH THE WALKER ASSISTED BY THE SPOUSE SEVERAL TIMES WITH LOOSE STOOLS, EDUCATED SPOUSE ON THE IMPORTANCE OF CALLING FOR ASSISTANCE, SHE STATES, "I CAN DO IT, I DON'T WANT TO BOTHER YOU" EDUCATED PT AND SPOUSE ON FALL PREVENTION, PT HAS BEEN CONFUSED OFF AND ON TODAY, WILL CONT TO MONITOR
--- NOTE | 2019-11-23 03:51 | NUR ---
CALL TO ANSWERING SERVICE RE: ITCHING. PETECHIAL RASH ON B UPPER ANTERIOR THIGHS, BACK, AND B SIDES. PT STATES HE IS ITCHY. CALL TO HOSPITALIST, DR. HAMILTON, N.O. FOR TOPICAL HYDROCORTISONE 2.5% CREAM BID PRN.
[2019-11-23 05:30] LABS: Hematocrit 35.2 % (37.0-53.0)
[2019-11-23 05:55] LABS: Albumin, Blood 2.1 g/dL (3.4-5.0); Anion Gap 10 mmol/L (6-16); Blood Urea Nitrogen 32 mg/dL (8-24); Bun/Creatinine Ratio 6.1 (12.0-20.0); CO2, Blood 29 mmol/L (21-32); Calcium, Blood 8.9 mg/dL (8.5-10.1); Chloride, Blood 96 mmol/L (98-108); Creatinine, Blood 5.27 mg/dL (0.60-1.20); Glomerular Filtration Rate 11 (60-); Glucose, Blood 86 mg/dL (70-99); Magnesium, Blood 2.2 mg/dL (1.6-2.4); Phosphorus, Blood 4.8 mg/dL (2.5-4.9); Potassium, Blood 3.7 mmol/L (3.5-5.5); Sodium, Blood 135 mmol/L (136-145)
--- NOTE | 2019-11-23 06:15 | NUR ---
DR. STOVALL IN TO SEE PT. NEW ORDER FOR ZYRTEC DAILY X 5 DAYS AND ATARAX 25MG Q24 HOURS PRN ITCH. PER PHARMACY LORATADINE IS FORMULARY SUBSTITUTE FOR ZYRTEC. ORDERS NOTED.
--- NOTE | 2019-11-23 07:56 | NUR ---
SHIFT SUMMARY: VSS. AFEB. A/OX3 W/ SOME CONFUSION. SLOW TO RESPOND AND SOME DIFFICULTY FINDING WORDS. CONT W/4+ PITTING EDEMA TO BLE, PELVIS. ABD LARGE, ROUND, DISTENDED. PETECHIAL RASH ON BACK AND SIDES. PT STATES HE IS ITCHING. SLEPT MINIMALLY. NORCO AND MORPHINE GIVEN FOR BACK AND NECK PAIN. AT BEDSIDE AND ASSISTING WITH TOILETING.
--- NOTE | 2019-11-23 17:22 | NUR ---
PT AO AND COOPERATIVE OF CARE JUST VERY TIRED. PT WAS IN DIALYSIS EARLIER IN THE DAY. PT HAS NOT BEEN EATING HARDLY ANYTHING EVEN WITH 'S ENCOURAGEMENT. PT VERY TIRED SINCE COMMING BACK FROM DIALYSIS. PT HAS LOW BP WHICH IS BEING MONITORED. NO DISTRESS NOTED WILL CONTINUE TO MONITOR.
--- NOTE | 2019-11-23 17:37 | NUR ---
extensive conversations today with patients . pt on dialyisis review with team ultra filtration today to help with venous statis and fluid. is much more fatigued today and repeating herself and having difficulty tracking conversation. Planned a route for her though would minimze her rural driving and provide most stopping points for acute care dialysis facilities. She has not been able to fomulate at plan of getting a new vehicle. tody she had a period of crying and frear over his possible . Supportive conversation with her. She is very repetative today and forgetfull. attempted to present her with closer facilities for care and she refused. She has expressed some fears and urealistic ideas of decrimination and fear of law enforcement and some minorities. Some disjointed conversation. Reassured her and presented boundaries of refusing reasonable alternative palns aas not reasonable care plan. Advised will support their journey together. Also advised and reenforced the extrodianry risk she is taking and the possible severe consequences. She diverts converstion to restoration and show stress in tracking conversation. Updated care manger and pt advocate. will continue to work on alternate plan. Fear for pt wifes health she is high risk for illness.
--- NOTE | 2019-11-24 02:32 | NUR ---
69 year old MAle continues with daily dialysis and he had a paracentesis on 11/12/19 with 4 l removed from abd ascites. Puja at bedside supportive involved with cares. She is attentive and supportive. PT responds to verbal stimuli slowly. He denies acute pain. Room air. Few drops urine 4 l reportedly removed in dialysis yesterday. PT started on oral keflex 1 x day based on creatine. Compliant with 1000 ml fluid restriction. assist with toileting ADLS. several loose stool reported by . reports they are going to try to go to [place] to get tx for advanced hepatorenal disease. PT was in [place], reports he was dc 1 hr to qualifying for [facility] benefits. Support offered. TX to body rash completed asked pharmacy to send bigger containers as he has rash to zofia leblanc abd. Red raised they are reportedly worse recently.
--- NOTE | 2019-11-24 06:27 | NUR ---
PT had hypotension which was somewhat improved by 3rd recheck. Midodrine 5 mg ordered tid so first dose given and updated DR Bermudez who increased dose to 7.5 mg po TID hold for SBP greater than 120. verified with pharmacy that keflex 500 mg po is adequate for dialysis PT. They double checked and keflex 500 mg po to be given 1 time daily after dialysis. continues at bedside supportive.
--- NOTE | 2019-11-24 09:18 | NUR ---
MORNING MED HOLD HOLDING MORNING MEDS PT IS SCHEDULED FOR DIALYSIS AT 0900. WILL GIVE MEDS POST DIALYSIS.
--- NOTE | 2019-11-25 02:38 | NUR ---
69 year old MAle who was admitted on 11/03/19 with sepsis due to bilat le cellulitis. He continues on daily dialysis and seeing DR Bermudez. PT has cirrhosis and HEP C. Recent diagnosis says no S/sx but has Ascites with at least 2 paracentesis since admission. Total 9 l tappped from ABD. hoping to go out of state for tx of advanced cirrosis but says they need to buy a motorNanjing Gelan Environmental Protection Equipmente 1st. since age 19 to [place]. Had a Daughter age 38. says DTR was victim of agent orange poisoning. PT jaundiced with back trunk red raised rash. Bilat le edema and redness. Tx skin with cortisone cream and bactroban. rt le posterior calf weeping. foam dressing applied. noncompliant with 1000 ml fluid restriction. PT with only mls of urine on dialysis.
[2019-11-25 05:22] LABS: Hematocrit 36.4 % (37.0-53.0); Hemoglobin 11.5 g/dL (13.5-17.5); Mean Corpuscular HGB 30.5 pg (26.0-34.0); Mean Corpuscular HGB Conc 31.6 g/dL (31.5-36.5); Mean Corpuscular Volume 97 fL (80-100); Mean Platelet Volume 10.5 fL (9.1-12.4); Platelet Count 70 K/mm3 (150-400); RDW Coefficient Variation 19.9 % (11.7-14.2); RDW Standard Deviation 68.5 fL (35.1-46.3); Red Blood Cell Count 3.77 M/mm3 (4.30-5.90); White Blood Cell Count 10.13 K/mm3 (4.00-11.30)
[2019-11-25 05:42] LABS: Albumin, Blood 2.6 g/dL (3.4-5.0); Albumin/Globulin Ratio 0.8 (0.8-1.8); Bilirubin, Total 12.8 mg/dL (0.1-1.0); Bun/Creatinine Ratio 5.8 (12.0-20.0); C-REACTIVE PROTEIN, EXT RANGE 3.65 mg/dL (0.000-0.300); Creatinine, Blood 5.71 mg/dL (0.60-1.20); Globulin, Blood 3.3 g/dL (2.2-4.0); Magnesium, Blood 2.3 mg/dL (1.6-2.4); Phosphorus, Blood 4.5 mg/dL (2.5-4.9); Potassium, Blood 3.8 mmol/L (3.5-5.5); Total Protein, Blood 5.9 g/dL (6.4-8.2)
[2019-11-25 05:47] LABS: BASOPHILS PERCENT MAN 1 % (0-2); EOSINOPHILS ABSOLUTE MAN 1.01 K/mm3 (0.00-0.68); EOSINOPHILS PERCENT MAN 10 % (0-6); LYMPHOCYTES ABSOLUTE MAN 1.72 K/mm3 (0.84-5.20); LYMPHOCYTES PERCENT MAN 17 % (21-46); MONOCYTES PERCENT MAN 4 % (4-13); NEUTROPHILS ABSOLUTE MAN 6.88 K/mm3 (1.96-9.15); SEG NEUTROPHILS PERCENT MAN 68 % (41-73); TOTAL CELLS COUNTED 100
--- NOTE | 2019-11-25 05:48 | NUR ---
PT with liver cancer hep C and bilat le cellulitis continues on daily dialysis and as per DR Metz from infectious disease rx keflex 500 mg po daily after dialysis. PT continues to have diffused red raised rash tx with steroid cream with mild improvement. Bilat LE with scalded appearance with sm amt oozing erous fluid. Wound care as RX. Spouse at bedside and supportive but she is very paranoid that we have caused his condition and that we are not treating his infection adequately and she says we need to call in more specialist because this a hospital aquired condition. PT had sepsis on admission from cellulitis. He is not a liver transplant candidate in [place] so she wants to take him to [place] in a motorhome. They do not own a motorhome and reportedly are homeless. Angry and agitated at times. has fired multiple caregivers and at least 1 MD and reported them. Had electric motor and generator assembler Lisa spend time with PT's and PT and listen to concerns. SW referral to assess living situation and discharge planning. Support offered. 2 staff spent at 3 hours in room assisting with cares with this complex terminal DX PT. PT denies pain.
--- NOTE | 2019-11-25 07:45 | NUR ---
PT PLEASANT COOP SOME SLOW TO RESPOND. PRESENTS A/O X3. DENIES PAIN. IN ROOM AT BEDSIDE. REQUESTS TO BE QUITE INVOLVED IN CARE. 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 NO TELE. LUNGS CLEAR, VERY LIGHT CRACKLES IN BASES. ON R.A. RESP EASY, UNLABORED. BT X4 STATES LAST BM YEST. ABD FIRM ROUND LARGE. VOIDS PER BATHROOM. 1 ASST TO SBA ASST. TAKES WHEN AVAIL. MOST OF BODY HAS RED, DARK, RAISED SPOTS/BUMPS , PT STATES HAS SOME IMPROVEMENT WITH CREAMES. DIALYSIS ACCESS [facility] ON [facility]. PENDING DIALYSIS THIS AM. BED IN LOW POSITION, CALL LITE IN REACH, CALLS APPROP
--- NOTE | 2019-11-25 12:45 | NUR ---
out at 0930 for dialysis, back 2330
--- NOTE | 2019-11-25 15:59 | NUR ---
CHANGED WOUND DRESSING ON RT LEG. CREAMS APPLIED PER ORDERS. PT SPOUSE STATED THAT MUST TURN TV OFF PIXELS THAT YOU CAN SEE, CAN SEE US. "50 EYES THROUGH [employer] CAN SEE YOU". QUESTIONED HER ON WHAT SHE SAID. SHE REPEATED CLAIM. DID NOT ARGUE, BUT ACCEPTED HER CLAIM. PT DID NOT ARGUE. 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 BED IN LOW POSITION, CALL LITE IN REACH, CALLS APPROP
--- NOTE | 2019-11-25 16:13 | NUR ---
RE DERMATOLOGY CONSULT. PT REQUEST DR ANG . CALLED DR ANG [facility]. CLOSED. LEFT MSG ON ANS MACHINE TO CALL ME AT HOSP FOR REFERRAL FOR ROOM 355. NO OTHER INFO LEFT ON MACHINE.
--- NOTE | 2019-11-25 17:32 | NUR ---
PT PLEASANT TODAY. DID GO TO DIALYSIS AGAIN TODAY. HE WAS TELLING ME ABOUT RESERVES AND THAT THERE WAS A WAR, NOT SURE IF WAS TALKING ABOUT SELF OR SOMEONE ELSE. HE CLARIFIED WAS TALKING ABOUT A PERCEIVED CONFLICT BETWEEN [place] AND [place]. SEEMS TO MISUNDERSTAND HIS DISCUSSION, AND TELLS ME WHAT SHE THINKS ITS ABOUT. NO OTHER CONCERNS AT THIS TIME. BED IN LOW POSITION, CALL LITE IN REACH, CALLS APPROP
[2019-11-26 05:23] LABS: Hematocrit 34.4 % (37.0-53.0); Hemoglobin 10.6 g/dL (13.5-17.5)
[2019-11-26 05:48] LABS: Magnesium, Blood 2.2 mg/dL (1.6-2.4)
[2019-11-26 05:49] LABS: Albumin, Blood 2.4 g/dL (3.4-5.0); Anion Gap 11 mmol/L (6-16); Blood Urea Nitrogen 28 mg/dL (8-24); Bun/Creatinine Ratio 5.3 (12.0-20.0); CO2, Blood 27 mmol/L (21-32); Calcium, Blood 8.7 mg/dL (8.5-10.1); Chloride, Blood 96 mmol/L (98-108); Creatinine, Blood 5.26 mg/dL (0.60-1.20); Glomerular Filtration Rate 12 (60-); Glucose, Blood 110 mg/dL (70-99); Phosphorus, Blood 4.2 mg/dL (2.5-4.9); Potassium, Blood 3.7 mmol/L (3.5-5.5); Sodium, Blood 134 mmol/L (136-145)
--- NOTE | 2019-11-26 08:01 | NUR ---
69 year old MAle with liver cancer sepsis and cellulitis continued on daily dialysis via rt chest perm cath. Not as hypotensive on higher dose midodrine. PT had 1 dose of vancomycin1 gm IV for skin rash. HAd been seen by DR Metz and also on keflex 500 mg po q day after dialysis. Medicated for nausea x 1 with compazine with helpful effect. Poor appetite , noncompliant with fluid restriction. Multiple stools but not producing urine. Puja continues at bedside and supportive. appears fearful and angry with terminal dx and PT has full code status. PT mostly appears calm and appropriate but he gets irritable with at times. She gets PT up with FWW and gait belt. Encouraged to explore options besides getting a motorhome to drive PT to [place] to speciality clinic for decompensated liver failure. PT needs daily dialysis and DR Bermudez says he would not tolerate a long road trip. PT was in [place] encouraged to discuss need for transport to [place] for appt at Speciality clinic for liver failure. PT very jaundiced with very severe rash red raised on back chest le with scalded appearance to both le below knees. dermatology consult pending, call was placed yesterday by day MARY Persaud. Photodoc wounds skin in chart completed.
[2019-11-26 08:51] LABS: Vancomycin, Random 11.5 ug/mL
[2019-11-26 09:45] LABS: BASOPHILS ABSOLUTE AUTO 0.09 K/mm3 (0.00-0.23); BASOPHILS PERCENT AUTO 1 % (0-2); EOSINOPHILS ABSOLUTE AUTO 0.65 K/mm3 (0.00-0.68); EOSINOPHILS PERCENT AUTO 8 % (0-6); Hematocrit 34.7 % (37.0-53.0); Hemoglobin 10.8 g/dL (13.5-17.5); IMMATURE GRAN ABSOLUTE AUTO 0.08 K/mm3 (0.00-0.10); IMMATURE GRAN PERCENT AUTO 1 % (0-1); LYMPHOCYTES ABSOLUTE AUTO 1.17 K/mm3 (0.84-5.20); LYMPHOCYTES PERCENT AUTO 14 % (21-46); MONOCYTES ABSOLUTE AUTO 0.88 K/mm3 (0.16-1.47); MONOCYTES PERCENT AUTO 11 % (4-13); Mean Corpuscular HGB 30.6 pg (26.0-34.0); Mean Corpuscular HGB Conc 31.1 g/dL (31.5-36.5); Mean Corpuscular Volume 98 fL (80-100); Mean Platelet Volume 10.3 fL (9.1-12.4); NEUTROPHILS ABSOLUTE AUTO 5.44 K/mm3 (1.96-9.15); NEUTROPHILS PERCENT AUTO 65 % (41-73); Platelet Count 63 K/mm3 (150-400); RDW Coefficient Variation 19.9 % (11.7-14.2); RDW Standard Deviation 70.4 fL (35.1-46.3); Red Blood Cell Count 3.53 M/mm3 (4.30-5.90); White Blood Cell Count 8.31 K/mm3 (4.00-11.30)
--- NOTE | 2019-11-26 19:30 | NUR ---
PATIENT A/OX3, UP WITH FWW AND 1 ASSIST TO CHAIR. BLE EDEMA AND CELLULITIS, WEAPING LARGE AMOUNT OF SEROUS DRAIANINGE. AT BEDSIDE THROUGHOUT THIS SHIFT AND DOES NOT LET PATIENT ANSWER FOR HIMSELF OR MAKE DECISIONS ABOUT HIS CARE. SPENT MOST OF THIS SHIFT UPSET AT STAFF AND DOCTORS AND THREATENING THAT SHE WAS GOING TO GET MEDICAL TRANSPORT TO TAKE HIM TO ANOTHER HOSPITAL. ADMINISTRATION AND PATIENT ADVOCATE ASSISTING WITH THE SITUTATION. PATIENT C/O OF PAIN IN BACK AND BLE, NORCO GIVEN X1. ZOFRAN GIVEN X1 AND VERY UPSET THAT I GAVE ZOFRAN INSTEAD OF COMPAZINE BECAUSE IT "MAKES HIM MORE NAUEATED." PATIENT REPORTS HIS NAUSEA IMPROVED AFTER GETTING THE ZOFRAN. MUTIPLE CREAMS TO BLE. TOLERATING SMALL AMOUNTS OF LOW NA+ DIET. VANCO TO TREAT CELLULITIS. 22G TO R FA WNL AND SL. NO DIALYSIS TODAY.
--- NOTE | 2019-11-27 00:33 | NUR ---
HYDROCODONE PT HAS BEEN RECEIVING HYDROCODONE/TYLENOL FOR PAIN. PT HAS HX OF LIVER FX AND LIVER CANCER. CALLED DR. HAMILTON TO CLARIFY IF HE WANTED TO CONTINUE THAT DESPITE THIS. HE STATES TO CONTINUE HYDROCODONE AND DID NOT WANT TO ORDER ANYTHING ELSE.
--- NOTE | 2019-11-27 06:23 | NUR ---
SHIFT SUMMARY PT HAS RESTED OFF AND ON THIS SHIFT. MEDICATED X1 THIS SHIFT FOR PAIN. PT IS PLESANT AND COOPERATIVE. AT BEDSIDE T/O THE NIGHT, AND IS VERY INVOLVED IN HIS CARE, ASSIST WITH MOST OF PT ADLS, AND ASKS QUESTIONS PERTAINING TO PT TREATMENT PLAN. LEGS REMAIN SWOLLEN, RED AND IRRITATED. BACTROBAN APPLIED PER EMAR ORDERS. SCATTERED RASH REMAINS UNCHANGED. DR. HAMPTON IN ROOM TO SPEAK WITH PT THIS SHIFT. LABS WERE ORDERED FOR PT SHORTLY AFTER HIS VISIT. NO ACUTE CHANGES. ASSESSMENT UNCHANGED. BED IN LOWEST POSITION, CALL LIGHT WITHIN REACH. WILL CONTINUE TO MONITOR AND REPORT TO ONCOMING RN.
[2019-11-27 06:27] LABS: EOSINOPHILS PERCENT AUTO 10 % (0-6); Hematocrit 36.9 % (37.0-53.0); Hemoglobin 11.5 g/dL (13.5-17.5); IMMATURE GRAN ABSOLUTE AUTO 0.09 K/mm3 (0.00-0.10); IMMATURE GRAN PERCENT AUTO 1 % (0-1); LYMPHOCYTES ABSOLUTE AUTO 1.47 K/mm3 (0.84-5.20); LYMPHOCYTES PERCENT AUTO 16 % (21-46); MONOCYTES PERCENT AUTO 12 % (4-13); Mean Corpuscular HGB 30.7 pg (26.0-34.0); Mean Corpuscular HGB Conc 31.2 g/dL (31.5-36.5); Mean Corpuscular Volume 99 fL (80-100); Mean Platelet Volume 10.5 fL (9.1-12.4); NEUTROPHILS ABSOLUTE AUTO 5.57 K/mm3 (1.96-9.15); NEUTROPHILS PERCENT AUTO 61 % (41-73); Platelet Count 71 K/mm3 (150-400); RDW Coefficient Variation 20.1 % (11.7-14.2); RDW Standard Deviation 70.4 fL (35.1-46.3); Red Blood Cell Count 3.74 M/mm3 (4.30-5.90); White Blood Cell Count 9.15 K/mm3 (4.00-11.30)
[2019-11-27 06:33] LABS: BASOPHILS ABSOLUTE AUTO 0.02 K/mm3 (0.00-0.23); BASOPHILS PERCENT AUTO 0 % (0-2)
[2019-11-27 06:38] LABS: Albumin, Blood 2.5 g/dL (3.4-5.0); Albumin/Globulin Ratio 0.7 (0.8-1.8); Bilirubin, Total 16.3 mg/dL (0.1-1.0); Bun/Creatinine Ratio 5.7 (12.0-20.0); C-REACTIVE PROTEIN, EXT RANGE 4.09 mg/dL (0.000-0.300); Creatinine, Blood 6.27 mg/dL (0.60-1.20); Globulin, Blood 3.4 g/dL (2.2-4.0); Magnesium, Blood 2.2 mg/dL (1.6-2.4); Phosphorus, Blood 4.7 mg/dL (2.5-4.9); Potassium, Blood 3.9 mmol/L (3.5-5.5); Total Protein, Blood 5.9 g/dL (6.4-8.2)
[2019-11-27 06:40] LABS: International Normalized Ratio 1.65; Prothrombin Time Results 17.2 Sec (9.7-11.5)
--- NOTE | 2019-11-27 06:48 | NUR ---
STANDING WEIGHTS PT REFUSES FOR PT TO HAVE STANDING WEIGHTS. PT HAS BEEN ASKED EVERY MORNING AND EACH TIME SHE REFUSES.
[2019-11-27 15:14] LABS: Vancomycin, Random 18.3 ug/mL
--- NOTE | 2019-11-27 18:30 | NUR ---
Shift Summary A/Ox3, both patient and was quite pleasant today. Redness in lower extremity remains present, unable to tell if it is worsening or improving d/t first day with patient. 1P c FWW to bathroom, oliguria. Pt had dialysis today, tolerated well. This RN was able to provide skin care, bactroban applied to redness in lower extremities, dressing on R calf changed. Medicated for all over pain x 2 with good results. Discussed with Dr. Mcdonald RE concerns of pt taking Laverne 5/325 as it has acetaminophen and pt has end-stage liver disease. Per Dr. Mcdonald, pt is ok to take as long as acetaminophen is less than 3000mg/day. (Puja) requested Zofran to be d/c, per Dr. Mdconald, ok to d/c Zofran. No other concerns or changes.
--- NOTE | 2019-11-28 04:47 | NUR ---
SUMMARY PT HAD NO ISSUES NOTED. PT ASSISTED IN PT'S CARE AND TOILETING. PT MEDICATED FOR PAIN "EVERYWHERE". PT HAS BEEN SLEEPING WELL AND HAS BEEN PRESENT T/O SHIFT. PT CURRENTLY SLEEPING AND IN NO DISTRESS.
[2019-11-28 06:14] LABS: BASOPHILS ABSOLUTE AUTO 0.09 K/mm3 (0.00-0.23); BASOPHILS PERCENT AUTO 1 % (0-2); EOSINOPHILS ABSOLUTE AUTO 1.06 K/mm3 (0.00-0.68); EOSINOPHILS PERCENT AUTO 11 % (0-6); Hematocrit 35.8 % (37.0-53.0); Hemoglobin 11.3 g/dL (13.5-17.5); IMMATURE GRAN ABSOLUTE AUTO 0.14 K/mm3 (0.00-0.10); IMMATURE GRAN PERCENT AUTO 2 % (0-1); LYMPHOCYTES ABSOLUTE AUTO 1.38 K/mm3 (0.84-5.20); LYMPHOCYTES PERCENT AUTO 14 % (21-46); MONOCYTES ABSOLUTE AUTO 1.24 K/mm3 (0.16-1.47); MONOCYTES PERCENT AUTO 13 % (4-13); Mean Corpuscular HGB 31.5 pg (26.0-34.0); Mean Corpuscular HGB Conc 31.6 g/dL (31.5-36.5); Mean Corpuscular Volume 100 fL (80-100); Mean Platelet Volume 10.5 fL (9.1-12.4); NEUTROPHILS ABSOLUTE AUTO 5.72 K/mm3 (1.96-9.15); NEUTROPHILS PERCENT AUTO 59 % (41-73); Platelet Count 70 K/mm3 (150-400); RDW Coefficient Variation 20.6 % (11.7-14.2); RDW Standard Deviation 72.8 fL (35.1-46.3); Red Blood Cell Count 3.59 M/mm3 (4.30-5.90); White Blood Cell Count 9.63 K/mm3 (4.00-11.30)
[2019-11-28 06:29] LABS: BASOPHILS PERCENT MAN 0 % (0-2); EOSINOPHILS ABSOLUTE MAN 1.54 K/mm3 (0.00-0.68); EOSINOPHILS PERCENT MAN 16 % (0-6); LYMPHOCYTES ABSOLUTE MAN 0.77 K/mm3 (0.84-5.20); LYMPHOCYTES PERCENT MAN 8 % (21-46); METAMYELOCYTE ABSOLUTE MAN 0.09 K/mm3 (0.00-0.00); METAMYELOCYTE PERCENT MAN 1 % (0-0); MONOCYTES ABSOLUTE MAN 0.77 K/mm3 (0.16-1.47); MONOCYTES PERCENT MAN 8 % (4-13); NEUTROPHILS ABSOLUTE MAN 6.45 K/mm3 (1.96-9.15); SEG NEUTROPHILS PERCENT MAN 67 % (41-73); TOTAL CELLS COUNTED 100
[2019-11-28 06:34] LABS: Albumin, Blood 2.7 g/dL (3.4-5.0); Albumin/Globulin Ratio 0.9 (0.8-1.8); Bilirubin, Total 16.7 mg/dL (0.1-1.0); Bun/Creatinine Ratio 5.7 (12.0-20.0); Calcium, Blood 9.1 mg/dL (8.5-10.1); Creatinine, Blood 5.77 mg/dL (0.60-1.20); Globulin, Blood 3.1 g/dL (2.2-4.0); Magnesium, Blood 2.3 mg/dL (1.6-2.4); Phosphorus, Blood 4.5 mg/dL (2.5-4.9); Potassium, Blood 4.6 mmol/L (3.5-5.5); Total Protein, Blood 5.8 g/dL (6.4-8.2)
[2019-11-28 09:44] LABS: Vancomycin, Random 25.6 ug/mL
--- NOTE | 2019-11-28 14:33 | NUR ---
PULLED IV: PATIENT ACCIDENTLY PULLED IV. REQUIRED PRESSURE TO HALT BLEEDING FOR UP TO [address] IN ROOM. PER [address] PATEL, MICHAELA FOR PATIENT TO HAVE NO IV ACCESS FOR NOW.
--- NOTE | 2019-11-28 18:32 | NUR ---
END OF SHIFT SUMMARY: PATIENT FATIGUED THROUGHOUT SHIFT. ABLE TO AMBULATE TO THE BATHROOM WITH FWW AND ONE PERSON ASSIST. PATIENT MEDICATED FOR PAIN IN BLE ONE TIME IN THE MORNING. WITH THE ASSISTANCE OF PATIENT'S , BLE WERE MEDICATED WITH ORDERED CREAM AND THE RIGHT CALF WAS DRESSED WITH THE PATIENT'S 'S DIRECTIONS AND APPROVAL. PATIENT HAS A MINIMAL APPETITE. THIS AFTERNOON, PATIENT REPORTED FEELING REFLUX. DISCUSSED WITH DR. PATEL. NEW ORDERS RECEIVED FOR PRN AND SCHEDULED ANTI-ACIDS. SEE EMAR. PATIENT IS SLOW TO RESPOND AND HAS GARBLED SPEECH. ABLE TO MAKE GENERAL NEEDS KNOWN. NONSENSICAL AT TIMES.
--- NOTE | 2019-11-29 04:47 | NUR ---
SUMMARY PT HAS SLEPT MOST OF SHIFT. PT ABLE TO AMBULATE W/ FWW AND SBA. PT IS CONTINUALLY CHANGING LINENS DUE TO SOILING FROM PTS BLE'S. PT PAIN WAS MANAGED PER EMAR. PT IS CONFUSED AT TIMES AND DOES NOT MAKE SENSE AT TIMES. CALL LIGHT IN REACH AND PRESENT.
[2019-11-29 05:20] LABS: Hematocrit 33.2 % (37.0-53.0); Hemoglobin 10.4 g/dL (13.5-17.5); Mean Corpuscular HGB 31.4 pg (26.0-34.0); Mean Corpuscular HGB Conc 31.3 g/dL (31.5-36.5); Mean Corpuscular Volume 100 fL (80-100); Mean Platelet Volume 11.2 fL (9.1-12.4); NRBC ABSOLUTE 0.02 K/mm3 (0.00-0.02); NRBC Auto 0.2 /100 WBC (0.0-0.2); Platelet Count 97 K/mm3 (150-400); RDW Coefficient Variation 20.9 % (11.7-14.2); RDW Standard Deviation 71.8 fL (35.1-46.3); Red Blood Cell Count 3.31 M/mm3 (4.30-5.90); White Blood Cell Count 10.97 K/mm3 (4.00-11.30)
[2019-11-29 05:45] LABS: Albumin, Blood 2.4 g/dL (3.4-5.0); Albumin/Globulin Ratio 0.8 (0.8-1.8); Bilirubin, Total 15.4 mg/dL (0.1-1.0); Bun/Creatinine Ratio 5.7 (12.0-20.0); Calcium, Blood 8.8 mg/dL (8.5-10.1); Creatinine, Blood 6.82 mg/dL (0.60-1.20); Globulin, Blood 2.9 g/dL (2.2-4.0); Magnesium, Blood 2.4 mg/dL (1.6-2.4); Phosphorus, Blood 5.5 mg/dL (2.5-4.9); Potassium, Blood 4.6 mmol/L (3.5-5.5); Total Protein, Blood 5.3 g/dL (6.4-8.2)
[2019-11-29 05:46] LABS: BAND PERCENT MAN 1 % (0-8); BASOPHILS ABSOLUTE MAN 0.21 K/mm3 (0.00-0.23); BASOPHILS PERCENT MAN 2 % (0-2); EOSINOPHILS ABSOLUTE MAN 1.31 K/mm3 (0.00-0.68); EOSINOPHILS PERCENT MAN 12 % (0-6); LYMPHOCYTES % ATYPICAL MANUAL 1 % (0-0); LYMPHOCYTES PERCENT MAN 10 % (21-46); MONOCYTES ABSOLUTE MAN 0.65 K/mm3 (0.16-1.47); MONOCYTES PERCENT MAN 6 % (4-13); NEUTROPHILS ABSOLUTE MAN 7.56 K/mm3 (1.96-9.15); SEG NEUTROPHILS PERCENT MAN 68 % (41-73); TOTAL CELLS COUNTED 100
--- NOTE | 2019-11-29 09:38 | NUR ---
PT TO DIALYSIS UNIT VIA BED
--- NOTE | 2019-11-29 12:58 | NUR ---
PT BACK FROM DIALYSIS REPORT GIVEN TO CRISTIAN HERNANDEZ. DR PATEL WAS INTO SEE PT. PLAN IS FOR DC IN 1-2 DAYS. PT RESTING QUIETLY IN BED WITH EYES CLOSED. NO ACUTE CHANGES.
--- NOTE | 2019-11-29 16:19 | NUR ---
SHIFT SUMMARY NO ACUTE CHANGE WITH PATIENT. HE RECIEVED DIALYSIS TODAY. HE HAS REMAINED MOSTLY CONFUSED AND SAYING NONSENSICAL THINGS. HAS NOT LEFT THE BEDSIDE. SHE HAS REFUSED MUCH OF HIS MEDICATIONS AND CARE TODAY. WILL REATTEMPT TO PROVIDE WOUND CARE TO LEGS THIS EVENING. MEDICATED FOR PAIN PER ORDERS. MULTIPLE LINEN CHANGES DONE PER REQUEST.
--- NOTE | 2019-11-29 20:01 | NUR ---
Met with in dialysis pt somulent and not interactive today. Pt was confussed and had difficulty following conversation. Found her in hallway tonight trying to find exit. Review of case with hospitalist. will review with ethics on safe discharge.
--- NOTE | 2019-11-30 04:23 | NUR ---
PT REQUESTED TO HAVE PT EVALUATED BY HOSPITALIST THIS AM. DR. SMITH WAS CALLED AND INFORMED OF PT'S CONCERN FOR PT ABD DISCOMFORT. PT STATED SHE WAS CONCERNED PT WAS HAVING SOME TYPE OF ISSUE WITH BLOOD VESSELS. DR. SMITH AGREED TO COME EVALUATE PT.
--- NOTE | 2019-11-30 04:38 | NUR ---
SUMMARY PT HAD INCREASE IN ABD AND ORDERED MED HAD LITTLE RELIEF. PROVIDER CALLED AND NORCO WAS CHANGED TO OXYCODONE. PT NOW IS COMFORTABLE. PT HAS BEEN CHANGING PT LINEN FREQUENTLY. PT HAS STATED THAT SHE IS CONCERNED ABOUT BEING DISCHARGED AND BEING HOMELESS. CURRENTLY AWAITING DR SMITH TO EVALUATE PT PER REQUEST. PT CURRENTLY RESTING COMFORTABLY AND IN NO DISTRESS. WCTM
[2019-11-30 05:27] LABS: Hematocrit 32.1 % (37.0-53.0); Hemoglobin 9.9 g/dL (13.5-17.5)
[2019-11-30 05:55] LABS: Magnesium, Blood 2.3 mg/dL (1.6-2.4)
[2019-11-30 05:56] LABS: Albumin, Blood 2.5 g/dL (3.4-5.0); Anion Gap 15 mmol/L (6-16); Blood Urea Nitrogen 33 mg/dL (8-24); Bun/Creatinine Ratio 5.5 (12.0-20.0); CO2, Blood 23 mmol/L (21-32); Chloride, Blood 95 mmol/L (98-108); Creatinine, Blood 6.04 mg/dL (0.60-1.20); Glomerular Filtration Rate 10 (60-); Glucose, Blood 76 mg/dL (70-99); Phosphorus, Blood 5.2 mg/dL (2.5-4.9); Potassium, Blood 3.8 mmol/L (3.5-5.5); Sodium, Blood 133 mmol/L (136-145)
[2019-11-30] MEDS ORDERED: Calcium Acetat667 MG PO (15:19)
[2019-11-30] MEDS ORDERED: FAMO10 PO (15:20)
[2019-11-30] MEDS ORDERED: TUMS500 MG PO (15:20)
[2019-11-30] MEDS ORDERED: HYDACE25S PR (15:21)
[2019-11-30] MEDS ORDERED: Vsl#3 Capsule1 EACH PO (15:22)
[2019-11-30] MEDS ORDERED: LINE600 PO (15:23)
[2019-11-30] MEDS ORDERED: MIDO5 PO (15:23)
[2019-11-30] MEDS ORDERED: ROXICODONE5 MG PO (15:25)
[2019-11-30] MEDS ORDERED: PROC5 PO (15:26)
--- NOTE | 2019-11-30 15:51 | NUR ---
SHIFT SUMMARY PT IS ALERT AT TIMES AND ORIENTED TO HIMSELF AND SITUATION. HE DID C/O PAIN X1 TODAY AND MEDS WERE GIVEN ORDERED AND HE DENIES PAIN NOW. DRESSINGS TO BLE REMAIN C.D.I. PT APPEARS WEAK AND JAUNDICE. HE WAS ABLE TO AMBULATE TO THE TOILET THIS MORNING WITH X 1 ASSIST AND FWW BUT ON THE WAY BACK HAD TO SIT IN THE CHAIR TO REST AND THEN WITH THE NURSE ASSIST HE WAS ABLE TO GET UP AND GET BACK TO BED. PT WENT TO DIALYSIS TODAY PER DR STOVALL FOLLOWING THE CT WITH CONTRAST. THE REMAINS AT THE BEDSIDE AND IS GENERALLY UNPLESANT AND VERY INVOLVED IN EACH PART OF THE PATIENTS CARE. PER DR PATEL PT IS TO BE DISCHARGED HOME TODAY. CARE MANAGEMENT IS WORKING ON SPECIAL ARRANGEMENTS FOR A WHEELCHAIR AND LODGING FOR THE NIGHT THE PT AND HIS ARE FROM OUT OF [place]OWN. THE DISCHARGE MEDS AND INSTRUCTIONS WERE REVIEWED WITH THE PT AND THE . NEW PT PACKETS WERE PROVIDED FOR [email or web address] AND [email or web address] FOR A FOLLOW UP APPT. ALL QUESTIONS WERE ANSWERED. IV REMOVED WITH NO ISSUE. PT AWAITING TRANSPORT. HE IS RESTING IN BED WITH CALL LIGHT IN REACH AND AT BEDSIDE.
--- NOTE | 2019-11-30 17:10 | NUR ---
multiple meeting with family to arrange for dischareg plan and supportive care. needs gret support due to her frailty. care managers at bedside to facilitate plan.
--- NOTE | 2019-11-30 20:40 | NUR ---
1950 Patient was assisted to private vehicle via wheel chair with all belongings from room. Patient was assisted up into vehicle by this expert medical writer and a security assessor for safety. assisted with putting most belongings in car. She wanted time to re-adjust her belongings in the car. Patient safely in vehicle. Security aware pt and still in parking lot. Pt discharged.
== END 2019-11-30 19:30 | disposition home or self-care (01) | DRG 871 ==
LOC: ER 16:55 → PCU 20:06 → ICUW 20:06 → MEDS 20:06 → ICUW 20:50 → MEDS 11-06 09:45 → ICUW 11-08 14:50 → MEDS 11-16 11:40
PROVIDERS: Emergency Medicine; Family Medicine; Internal Medicine; Internal Medicine Gastroenterology; Internal Medicine Nephrology; Nurse Practitioner Acute Care; Surgery; ADMIT Internal Medicine
PROC: 05HM33Z Insertion of Infusion Device into Right Internal Jugular Vein, Percutaneous Approach (ICD-10-PCS; 2019-11-08)
PROC: 5A1D70Z Performance of Urinary Filtration, Intermittent, Less than 6 Hours Per Day (ICD-10-PCS; 2019-11-09)
PROC: 0JH63XZ Insertion of Tunneled Vascular Access Device into Chest Subcutaneous Tissue and Fascia, Percutaneous Approach (ICD-10-PCS; principal; 2019-11-09 11:00)
PROC: 5A1D70Z Performance of Urinary Filtration, Intermittent, Less than 6 Hours Per Day (ICD-10-PCS; 2019-11-11)
PROC: 5A1D70Z Performance of Urinary Filtration, Intermittent, Less than 6 Hours Per Day (ICD-10-PCS; 2019-11-12)
PROC: 5A1D70Z Performance of Urinary Filtration, Intermittent, Less than 6 Hours Per Day (ICD-10-PCS; 2019-11-17)
PROC: 5A1D70Z Performance of Urinary Filtration, Intermittent, Less than 6 Hours Per Day (ICD-10-PCS; 2019-11-19)
DX: A41.9 Sepsis, unspecified organism (principal); K76.7 Hepatorenal syndrome; N17.0 Acute kidney failure with tubular necrosis; N18.6 End stage renal disease; I81 Portal vein thrombosis; L03.116 Cellulitis of left lower limb; R18.8 Other ascites; C22.0 Liver cell carcinoma; B37.49 Other urogenital candidiasis; K72.90 Hepatic failure, unspecified without coma; K74.60 Unspecified cirrhosis of liver; R23.3 Spontaneous ecchymoses; D64.9 Anemia, unspecified; D63.1 Anemia in chronic kidney disease; E83.41 Hypermagnesemia; Z87.891 Personal history of nicotine dependence
CPT/HCPCS: 36415; 49083; 71046; 74177; 76705; 76770; 77001; 80048; 80053; 80069; 80074; 80076; 80202; 81001; 81050; 82042; 82105; 82140; 82248; 82378; 82533; 82570; 82784; 83516; 83520; 83605; 83615; 83735; 83880; 83986; 84100; 84156; 84157; 84165; 84166; 84300; 85014; 85018; 85025; 85027; 85610; 85730; 86038; 86060; 86140; 86215; 86256; 86317; 86334; 86335; 86850; 86900; 86901; 87040; 87070; 87081; 87086; 87106; 87205; 89051; 92526; 92610; 93005; 93010; 93970; 93975; 94640; 96365; 97110; 97116; 97162; 97530; 99285-25; A9270-GY; C1750; C1751; J0610; J0690; J0692; J0696; J0780; J1100; J1644; J2270; J2405; J2704; J3010; J3370; J3430; J7030; J7050; P9041; P9046; Q9967